=== PATIENT | female | born 1935 | race American Indian/Alaskan Native ===

== ENCOUNTER 2018-09-30 11:40 | Inpatient (IN) | payer MEDICARE ==
--- NOTE | 2018-09-30 12:44 | Emergency Department Report ---
HPI - General Chief Complaint: GI Bleed Time Seen by Provider: 09/30/18 12:30 - HPI HPI: Room 10 The patient is an 83-year-old female presenting with a chief complaint of rectal bleeding. The patient is a resident at [facility] in [place] and per EMS the patient was reported to have rectal bleeding. EMS is unaware of the timeframe surrounding the chief complaint. The patient denies complaints Location: Gastrointestinal system Duration: Unknown Quality: Bleeding Severity: Unknown Modifying factors: [see above] Context: [see above] Mode of transportation: [not driving] ED Past Medical Hx - Past Medical History Previous Medical History?: Yes Hx Hypertension: Yes Hx CVA: Yes Hx of Cancer: Yes (colon CA) Additional medical history: Hyperlipidemia, anemia - Surgical History Past Surgical History?: No - Family History Family history: no significant - Social History Smoking Status: Never Smoker Substance Use Type: None - Medications Home Medications: Home Medications Medication Instructions Recorded Confirmed Last Taken Type Acetaminophen [Tylenol] 650 mg PO Q6HR PRN 09/30/18 09/30/18 Unknown History Ascorbic Acid [Vitamin C] 500 mg PO QDAY 09/30/18 09/30/18 Unknown History Aspirin [Aspirin BABY CHEW TAB] 81 mg PO QDAY 09/30/18 09/30/18 Unknown History Atorvastatin Calcium 80 mg PO DAILY 09/30/18 09/30/18 Unknown History Bisacodyl 10 mg RC Q24H 09/30/18 09/30/18 Unknown History Calcium Carbonate/Vitamin D3 1 each PO DAILY 09/30/18 09/30/18 Unknown History [Calcium 500-Vit D3 200 Tablet] Carvedilol [Coreg] 3.125 mg PO BID 09/30/18 09/30/18 Unknown History Docusate Sodium [Colace] 100 mg PO BID PRN 09/30/18 09/30/18 Unknown History Ergocalciferol [Vitamin D2] 1 cap PO QWEEK 09/30/18 09/30/18 Unknown History Ferrous Sulfate [Iron] 325 mg PO DAILY 09/30/18 09/30/18 Unknown History Megestrol Acetate 400 mg PO BID 09/30/18 09/30/18 Unknown History Mirtazapine [Remeron] 15 mg PO QHS 09/30/18 09/30/18 Unknown History Multivitamin Tab W-MINERAL 1 each PO QD 09/30/18 09/30/18 Unknown History [Multiple Vitamin/Mineral (Theragran M)] Sennosides [Senna] 17.2 mg PO DAILY 09/30/18 09/30/18 Unknown History amLODIPine [Norvasc] 10 mg PO DAILY 09/30/18 09/30/18 Unknown History hydroCHLOROthiazide [HCTZ] 25 mg PO QDAY 09/30/18 09/30/18 Unknown History ED Review of Systems ROS: Stated complaint: RECTUAL BLEEDING Other details as noted in HPI Constitutional: no symptoms reported Eyes: denies: eye pain ENT: denies: throat pain Respiratory: no symptoms reported Cardiovascular: denies: chest pain Endocrine: no symptoms reported Gastrointestinal: hematochezia. denies: abdominal pain, nausea Genitourinary: denies: dysuria Musculoskeletal: denies: back pain Neurological: denies: headache Physical Exam - Physical Exam Vital Signs: Vital Signs 09/30/18 11:49 Temperature 97.6 F Pulse Rate 109 H Respiratory 16 Rate Blood Pressure 112/60 O2 Sat by Pulse 97 Oximetry Physical Exam: GENERAL: The patient is well-developed well-nourished female lying on stretcher appearing pale but not in any acute distress. [] HEENT: Normocephalic. Atraumatic. Extraocular motions are intact. Patient has moist mucous membranes. NECK: Supple. Trachea midline CHEST/LUNGS: Clear to auscultation. There is no respiratory distress noted. HEART/CARDIOVASCULAR: Regular. There is no tachycardia. There is no gallop rub or murmur. ABDOMEN: Abdomen is soft, nontender. Patient has normal bowel sounds. There is no abdominal distention. SKIN: There is no rash. There is no edema. There is no diaphoresis. NEURO: The patient is awake awake and alert. The patient is cooperative. The patient has normal speech MUSCULOSKELETAL: There is no evidence of acute injury. RECTAL: Guaiac positive ED Course Vital Signs 09/30/18 11:49 Temperature 97.6 F Pulse Rate 109 H Respiratory 16 Rate Blood Pressure 112/60 O2 Sat by Pulse 97 Oximetry - Consultations Consultation #1: 09/30/18 13:48 GI paged 09/30/18 13:[address] French- Will consult ED Medical Decision Making - Lab Data Result diagrams: 09/30/18 12:43 09/30/18 12:43 Laboratory Tests 09/30/18 09/30/18 09/30/18 12:43 12:43 12:43 WBC 20.7 H RBC 3.05 L Hgb 7.4 L Hct 23.1 L MCV 76 L MCH 24 L MCHC 32 RDW 15.3 H Plt Count 648 H Lymph % (Auto) Derrick Hand Mayes % (Auto) Derrick Hand Eos % (Auto) Derrick Hand Baso % (Auto) Derrick Hand Lymph # Derrick Hand Mayes # Derrick Hand Eos # Derrick Hand Baso # Derrick Hand Add Manual Diff Complete Total Counted 100 Seg Neutrophils % Derrick Hand Seg Neuts % (Manual) 91.0 H Band Neutrophils % 0 Lymphocytes % (Manual) 6.0 L Reactive Lymphs % (Man) 0 Monocytes % (Manual) 3.0 Eosinophils % (Manual) 0 Basophils % (Manual) 0 Metamyelocytes % 0 Myelocytes % 0 Promyelocytes % 0 Blast Cells % 0 Nucleated RBC % Not Reportable Seg Neutrophils # Derrick Hand Seg Neutrophils # Man 18.8 H Band Neutrophils # 0.0 Lymphocytes # (Manual) 1.2 Abs React Lymphs (Man) 0.0 Monocytes # (Manual) 0.6 Eosinophils # (Manual) 0.0 Basophils # (Manual) 0.0 Metamyelocytes # 0.0 Myelocytes # 0.0 Promyelocytes # 0.0 Blast Cells # 0.0 WBC Morphology Not Reportable Hypersegmented Neuts Not Reportable Hyposegmented Neuts Not Reportable Hypogranular Neuts Not Reportable Smudge Cells Not Reportable Toxic Granulation Not Reportable Toxic Vacuolation Not Reportable Dohle Bodies Not Reportable Pelger-Huet Anomaly Not Reportable Hao Rods Not Reportable Platelet Estimate Appears increased Clumped Platelets Not Reportable Plt Clumps, EDTA Not Reportable Large Platelets Few Giant Platelets Not Reportable Platelet Satelliting Not Reportable Plt Morphology Comment Not Reportable RBC Morphology Not Reportable Dimorphic RBCs Not Reportable Polychromasia Not Reportable Hypochromasia 1+ Poikilocytosis Not Reportable Anisocytosis 1+ Microcytosis 1+ Macrocytosis Not Reportable Spherocytes Not Reportable Pappenheimer Bodies Not Reportable Sickle Cells Not Reportable Target Cells Rare Tear Drop Cells Not Reportable Ovalocytes 1+ Helmet Cells Rare [place]-Acequia Bodies Not Reportable [place] Rings Not Reportable [place] Cells Not Reportable Bite Cells Not Reportable Crenated Cell Not Reportable Elliptocytes Few Acanthocytes (Spur) Not Reportable Rouleaux Not Reportable Hemoglobin C Crystals Not Reportable Schistocytes Not Reportable Malaria parasites Not Reportable Denis Bodies Not Reportable Hem Pathologist Commnt No PT 16.3 H INR 1.27 H APTT 20.0 L Sodium 142 Potassium 4.7 Chloride 96.0 L Carbon Dioxide 23 Anion Gap 28 BUN 98 H Creatinine 2.3 H Estimated GFR 25 BUN/Creatinine Ratio 43 Glucose 150 H Calcium 10.6 H Total Bilirubin 0.40 AST 14 ALT 7 Alkaline Phosphatase 105 Total Protein 8.6 H Albumin 3.3 L Albumin/Globulin Ratio 0.6 Lipase 29 Blood Type Antibody Screen Crossmatch 09/30/18 12:43 WBC RBC Hgb Hct MCV MCH MCHC RDW Plt Count Lymph % (Auto) Mayes % (Auto) Eos % (Auto) Baso % (Auto) Lymph # Mayes # Eos # Baso # Add Manual Diff Total Counted Seg Neutrophils % Seg Neuts % (Manual) Band Neutrophils % Lymphocytes % (Manual) Reactive Lymphs % (Man) Monocytes % (Manual) Eosinophils % (Manual) Basophils % (Manual) Metamyelocytes % Myelocytes % Promyelocytes % Blast Cells % Nucleated RBC % Seg Neutrophils # Seg Neutrophils # Man Band Neutrophils # Lymphocytes # (Manual) Abs React Lymphs (Man) Monocytes # (Manual) Eosinophils # (Manual) Basophils # (Manual) Metamyelocytes # Myelocytes # Promyelocytes # Blast Cells # WBC Morphology Hypersegmented Neuts Hyposegmented Neuts Hypogranular Neuts Smudge Cells Toxic Granulation Toxic Vacuolation Dohle Bodies Pelger-Huet Anomaly Hao Rods Platelet Estimate Clumped Platelets Plt Clumps, EDTA Large Platelets Giant Platelets Platelet Satelliting Plt Morphology Comment RBC Morphology Dimorphic RBCs Polychromasia Hypochromasia Poikilocytosis Anisocytosis Microcytosis Macrocytosis Spherocytes Pappenheimer Bodies Sickle Cells Target Cells Tear Drop Cells Ovalocytes Helmet Cells Titus-Acequia Bodies [place] Rings Rogerio Cells Bite Cells Crenated Cell Elliptocytes Acanthocytes (Spur) Rouleaux Hemoglobin C Crystals Schistocytes Malaria parasites Denis Bodies Hem Pathologist Commnt PT INR APTT Sodium Potassium Chloride Carbon Dioxide Anion Gap BUN Creatinine Estimated GFR BUN/Creatinine Ratio Glucose Calcium Total Bilirubin AST ALT Alkaline Phosphatase Total Protein Albumin Albumin/Globulin Ratio Lipase Blood Type AB POSITIVE Antibody Screen Negative Crossmatch See Detail - Differential Diagnosis GI bleed, symptomatic anemia, diverticulosis Critical care attestation.: If time is entered above; I have spent that time in minutes in the direct care of this critically ill patient, excluding procedure time. ED Disposition Clinical Impression: GI bleed, Symptomatic anemia, Leukocytosis, Renal insufficiency Disposition: OP ADMIT IP TO THIS HOSP Is pt being admited?: Yes Does the pt Need Aspirin: No Condition: Fair Forms: Accompanied Note Time of Disposition: 14:07 (hospitalist paged (Dr Adhikari))
[2018-09-30 13:16] LABS: Hematocrit 23.1 % (30.3-42.9); Hemoglobin 7.4 gm/dl (10.1-14.3); Mean Corpuscular HGB Conc 32 % (30-34); Mean Corpuscular Volume 76 fl (79-97); Platelet Count 648 K/mm3 (140-440); Red Blood Count 3.05 M/mm3 (3.65-5.03); Red Cell Distribution Width 15.3 % (13.2-15.2)
[2018-09-30 13:24] LABS: INR 1.27 (0.87-1.13)
[2018-09-30] MEDS ORDERED: NACL 0.9% 500 ML 500 ML IV ONE (13:29)
[2018-09-30 13:56] LABS: Basophils % (Manual) 0 % (0.0-1.8); Eosinophils % (Manual) 0 % (0.0-4.3); Total Cells Counted 100
[2018-09-30 13:57] LABS: Anisocytosis 1+; Helmet Cells Rare; Hypochromasia 1+; Large Platelets Few; Ovalocytes 1+; Platelet Estimate Appears Increased; Target Cells Rare
--- NOTE | 2018-09-30 13:58 | Gastroenterology Consultation ---
History of Present Illness - Reason for Consult Consult date: 09/30/18 rectal bleeding - History of Present Illness This is a 83 yo female from [facility] with pmh of stroke, dementia, and h/o colon cancer (unknown treatment or details of the history) presenting to the ED for rectal bleeding per custodial personnel. Patient unable to give much history but denies any abdominal pain, nausea/vomiting or diarrhea. In the ED, she was noted to be mildly tachycardic with normal BP. Hgb at 7 with no known baseline Hgb. Spoke with her niece, who is the closest relative. She thinks patient has had colonoscopy in the past but not sure of the details. Patient received most of her care at [place]. H/o kidney surgery. Per custodial records, patient only on ASA 81 mg. Past History Past Medical History: stroke Past Surgical History: Other (kidney surgery) Medications and Allergies Allergies Allergy/AdvReac Type Severity Reaction Status Date / Time No Known Allergies Allergy Verified 09/30/18 11:47 Home Medications Medication Instructions Recorded Confirmed Last Taken Type Acetaminophen [Tylenol] 650 mg PO Q6HR PRN 09/30/18 09/30/18 Unknown History Ascorbic Acid [Vitamin C] 500 mg PO QDAY 09/30/18 09/30/18 Unknown History Aspirin [Aspirin BABY CHEW TAB] 81 mg PO QDAY 09/30/18 09/30/18 Unknown History Atorvastatin Calcium 80 mg PO DAILY 09/30/18 09/30/18 Unknown History Bisacodyl 10 mg RC Q24H 09/30/18 09/30/18 Unknown History Calcium Carbonate/Vitamin D3 1 each PO DAILY 09/30/18 09/30/18 Unknown History [Calcium 500-Vit D3 200 Tablet] Carvedilol [Coreg] 3.125 mg PO BID 09/30/18 09/30/18 Unknown History Docusate Sodium [Colace] 100 mg PO BID PRN 09/30/18 09/30/18 Unknown History Ergocalciferol [Vitamin D2] 1 cap PO QWEEK 09/30/18 09/30/18 Unknown History Ferrous Sulfate [Iron] 325 mg PO DAILY 09/30/18 09/30/18 Unknown History Megestrol Acetate 400 mg PO BID 09/30/18 09/30/18 Unknown History Mirtazapine [Remeron] 15 mg PO QHS 09/30/18 09/30/18 Unknown History Multivitamin Tab W-MINERAL 1 each PO QD 09/30/18 09/30/18 Unknown History [Multiple Vitamin/Mineral (Theragran M)] Sennosides [Senna] 17.2 mg PO DAILY 09/30/18 09/30/18 Unknown History amLODIPine [Norvasc] 10 mg PO DAILY 09/30/18 09/30/18 Unknown History hydroCHLOROthiazide [HCTZ] 25 mg PO QDAY 09/30/18 09/30/18 Unknown History Review of Systems - Review of Systems ROS unobtainable: due to mental status Exam - Constitutional Vital Signs: Temp Pulse Resp BP Pulse Ox 97.6 F 134 H 20 122/66 88 09/30/18 11:49 09/30/18 12:49 09/30/18 12:49 09/30/18 12:49 09/30/18 12:49 General appearance: no acute distress - EENT Eyes: EOM intact ENT: hearing intact - Neck Neck: supple - Respiratory Respiratory effort: normal Respiratory: bilateral: CTA - Cardiovascular Rhythm: regular Heart Sounds: Present: S1 & S2 Extremities: No edema - Gastrointestinal General gastrointestinal: Present: soft, non-tender, non-distended, normal bowel sounds - Neurologic Neurological: oriented to person, oriented to place - Psychiatric Psychiatric: appropriate mood/affect - Labs CBC & Chem 7: 09/30/18 12:43 09/30/18 12:43 Lab Results: Laboratory Results - last 24 hr 09/30/18 09/30/18 09/30/18 12:43 12:43 12:43 WBC 20.7 H RBC 3.05 L Hgb 7.4 L Hct 23.1 L MCV 76 L MCH 24 L MCHC 32 RDW 15.3 H Plt Count 648 H Lymph % (Auto) Freight Manager [place] % (Auto) Freight Manager Eos % (Auto) Freight Manager Baso % (Auto) Freight Manager Lymph # Freight Manager [place] # Freight Manager Eos # Freight Manager Baso # Freight Manager Add Manual Diff Complete Total Counted 100 Seg Neutrophils % Freight Manager Seg Neuts % (Manual) 91.0 H Band Neutrophils % 0 Lymphocytes % (Manual) 6.0 L Reactive Lymphs % (Man) 0 Monocytes % (Manual) 3.0 Eosinophils % (Manual) 0 Basophils % (Manual) 0 Metamyelocytes % 0 Myelocytes % 0 Promyelocytes % 0 Blast Cells % 0 Nucleated RBC % Not Reportable Seg Neutrophils # Freight Manager Seg Neutrophils # Man 18.8 H Band Neutrophils # 0.0 Lymphocytes # (Manual) 1.2 Abs React Lymphs (Man) 0.0 Monocytes # (Manual) 0.6 Eosinophils # (Manual) 0.0 Basophils # (Manual) 0.0 Metamyelocytes # 0.0 Myelocytes # 0.0 Promyelocytes # 0.0 Blast Cells # 0.0 WBC Morphology Not Reportable Hypersegmented Neuts Not Reportable Hyposegmented Neuts Not Reportable Hypogranular Neuts Not Reportable Smudge Cells Not Reportable Toxic Granulation Not Reportable Toxic Vacuolation Not Reportable Dohle Bodies Not Reportable Pelger-Huet Anomaly Not Reportable Hao Rods Not Reportable Platelet Estimate Appears increased Clumped Platelets Not Reportable Plt Clumps, EDTA Not Reportable Large Platelets Few Giant Platelets Not Reportable Platelet Satelliting Not Reportable Plt Morphology Comment Not Reportable RBC Morphology Not Reportable Dimorphic RBCs Not Reportable Polychromasia Not Reportable Hypochromasia 1+ Poikilocytosis Not Reportable Anisocytosis 1+ Microcytosis 1+ Macrocytosis Not Reportable Spherocytes Not Reportable Pappenheimer Bodies Not Reportable Sickle Cells Not Reportable Target Cells Rare Tear Drop Cells Not Reportable Ovalocytes 1+ Helmet Cells Rare Titus-Mcpherson Bodies Not Reportable [place] Rings Not Reportable [place] Cells Not Reportable Bite Cells Not Reportable Crenated Cell Not Reportable Elliptocytes Few Acanthocytes (Spur) Not Reportable Rouleaux Not Reportable Hemoglobin C Crystals Not Reportable Schistocytes Not Reportable Malaria parasites Not Reportable Denis Bodies Not Reportable Hem Pathologist Commnt No PT 16.3 H INR 1.27 H APTT 20.0 L Blood Type AB POSITIVE Antibody Screen Negative Crossmatch See Detail Assessment and Plan # Rectal bleeding - Hgb at 7.4 with no known baseline H/H. leukocytosis without clear cause. - benign abdominal exam. - CT abdomen/pelvis pending. - patient receiving 1 unit PRBC currently. Rec: - monitor H/H overnight. - follow up CT scan results. - will plan for colonoscopy tomorrow pending CT scan results. - clear liquids today and NPO MN. - Golytely prep.
[2018-09-30 14:01] LABS: Albumin 3.3 g/dL (3.9-5); Calcium 10.6 mg/dL (8.4-10.2)
[2018-09-30] MEDS ORDERED: NACL 0.9% 1000 ML 1,000 ML IV ONE (14:06)
--- NOTE | 2018-09-30 14:40 | History and Physical Report ---
History of Present Illness Chief complaint: confused History of present illness: 83 YO Female [facility] Resident at [facility] with Dementia, HTN, CVA, HLD, Colon Cancer, Anemia presents to ED for evaluation. Pt is confused and unable to provide history. Pt history taken from ED staff, EMS, and SNF staff. As per staff, the patient was found to have rectal bleeding today. EMS notified, and upon arrival the patient was found to be confused. Pt transported to [facility] for further care and evaluation. Pt seen and evaluated in ED and found to have GI Bleed, Encephalopathy, Acute Renal Failure, and Sepsis. Pt admitted to [facility] unit and initiated on sepsis protocol. GI team consulted in ED. No further history obtainable. Past History Past Medical History: anemia, cancer, hypertension, hyperlipidemia, stroke Past Surgical History: No surgical history, Other (reviewed) Social history: single. denies: smoking, alcohol abuse, IV drug use Family history: no significant family history (reviewed) Medications and Allergies Allergies Allergy/AdvReac Type Severity Reaction Status Date / Time No Known Allergies Allergy Verified 09/30/18 11:47 Home Medications Medication Instructions Recorded Confirmed Last Taken Type Acetaminophen [Tylenol] 650 mg PO Q6HR PRN 09/30/18 09/30/18 Unknown History Ascorbic Acid [Vitamin C] 500 mg PO QDAY 09/30/18 09/30/18 Unknown History Aspirin [Aspirin BABY CHEW TAB] 81 mg PO QDAY 09/30/18 09/30/18 Unknown History Atorvastatin Calcium 80 mg PO DAILY 09/30/18 09/30/18 Unknown History Bisacodyl 10 mg RC Q24H 09/30/18 09/30/18 Unknown History Calcium Carbonate/Vitamin D3 1 each PO DAILY 09/30/18 09/30/18 Unknown History [Calcium 500-Vit D3 200 Tablet] Carvedilol [Coreg] 3.125 mg PO BID 09/30/18 09/30/18 Unknown History Docusate Sodium [Colace] 100 mg PO BID PRN 09/30/18 09/30/18 Unknown History Ergocalciferol [Vitamin D2] 1 cap PO QWEEK 09/30/18 09/30/18 Unknown History Ferrous Sulfate [Iron] 325 mg PO DAILY 09/30/18 09/30/18 Unknown History Megestrol Acetate 400 mg PO BID 09/30/18 09/30/18 Unknown History Mirtazapine [Remeron] 15 mg PO QHS 09/30/18 09/30/18 Unknown History Multivitamin Tab W-MINERAL 1 each PO QD 09/30/18 09/30/18 Unknown History [Multiple Vitamin/Mineral (Theragran M)] Sennosides [Senna] 17.2 mg PO DAILY 09/30/18 09/30/18 Unknown History amLODIPine [Norvasc] 10 mg PO DAILY 09/30/18 09/30/18 Unknown History hydroCHLOROthiazide [HCTZ] 25 mg PO QDAY 09/30/18 09/30/18 Unknown History Active Meds: Active Medications Sodium Chloride (Nacl 0.9% 1000 Ml) 1,000 mls @ 999 mls/hr IV ONCE ONE Stop: 09/30/18 15:06 Review of Systems ROS unobtainable: due to mental status Exam - Constitutional Vitals: Temp Pulse Resp BP Pulse Ox 97.6 F 134 H 20 122/66 88 09/30/18 11:49 09/30/18 12:49 09/30/18 12:49 09/30/18 12:49 09/30/18 12:49 General appearance: Present: mild distress, cachectic - EENT Eyes: Present: PERRL (conjunctival pallor) ENT: hearing intact, clear oral mucosa - Neck Neck: Present: supple, normal ROM - Respiratory Respiratory effort: normal Respiratory: bilateral: CTA - Cardiovascular Heart Sounds: Present: S1 & S2. Absent: rub, click - Extremities Extremities: pulses symmetrical, No edema Peripheral Pulses: within normal limits - Abdominal General gastrointestinal: Present: soft, non-tender, non-distended, normal bowel sounds Female genitourinary: Present: normal - Integumentary Integumentary: Present: clear, warm, dry - Musculoskeletal Musculoskeletal: generalized weakness - Psychiatric Psychiatric: no appropriate mood/affect, no intact judgment & insight, no memory intact - Neurologic Neurologic: no focal deficits, no gait normal Results - Labs CBC & Chem 7: 09/30/18 12:43 09/30/18 12:43 Labs: Abnormal lab results 09/30/18 09/30/18 09/30/18 Range/Units 12:43 12:43 12:43 WBC 20.7 H (4.5-11.0) K/mm3 RBC 3.05 L (3.65-5.03) M/mm3 Hgb 7.4 L (10.1-14.3) gm/dl Hct 23.1 L (30.3-42.9) % MCV 76 L (79-97) fl MCH 24 L (28-32) pg RDW 15.3 H (13.2-15.2) % Plt Count 648 H (140-440) K/mm3 Seg Neuts % (Manual) 91.0 H (40.0-70.0) % Lymphocytes % (Manual) 6.0 L (13.4-35.0) % Seg Neutrophils # Man 18.8 H (1.8-7.7) K/mm3 PT 16.3 H (12.2-14.9) Sec. INR 1.27 H (0.87-1.13) APTT 20.0 L (24.2-36.6) Sec. Chloride 96.0 L (98-107) mmol/L BUN 98 H (7-17) mg/dL Creatinine 2.3 H (0.7-1.2) mg/dL Glucose 150 H (65-100) mg/dL Calcium 10.6 H (8.4-10.2) mg/dL Total Protein 8.6 H (6.3-8.2) g/dL Albumin 3.3 L (3.9-5) g/dL Crossmatch 09/30/18 Range/Units 12:43 WBC (4.5-11.0) K/mm3 RBC (3.65-5.03) M/mm3 Hgb (10.1-14.3) gm/dl Hct (30.3-42.9) % MCV (79-97) fl MCH (28-32) pg RDW (13.2-15.2) % Plt Count (140-440) K/mm3 Seg Neuts % (Manual) (40.0-70.0) % Lymphocytes % (Manual) (13.4-35.0) % Seg Neutrophils # Man (1.8-7.7) K/mm3 PT (12.2-14.9) Sec. INR (0.87-1.13) APTT (24.2-36.6) Sec. Chloride (98-107) mmol/L BUN (7-17) mg/dL Creatinine (0.7-1.2) mg/dL Glucose (65-100) mg/dL Calcium (8.4-10.2) mg/dL Total Protein (6.3-8.2) g/dL Albumin (3.9-5) g/dL Crossmatch See Detail Assessment and Plan - Patient Problems (1) Sepsis Current Visit: Yes Status: Acute Qualifiers: Sepsis type: sepsis due to unspecified organism Qualified Code(s): A41.9 - Sepsis, unspecified organism Plan to address problem: IV antibiotic therapy, CBC, CMP, urinalysis, blood cultures, IVF resuscitation therapy, serial lactic acid level (2) ARF (acute renal failure) Current Visit: Yes Status: Acute Qualifiers: Acute renal failure type: with acute tubular necrosis Qualified Code(s): N17.0 - Acute kidney failure with tubular necrosis Plan to address problem: IVF resuscitation therapy, monitor uop q shift, monitor serum creatnine (3) Anemia Current Visit: Yes Status: Acute Plan to address problem: PRBC transfusion, serial cbc (4) GI bleed Current Visit: Yes Status: Acute Qualifiers: GI bleed type/associated pathology: anorectal hemorrhage Qualified Code(s): K62.5 - Hemorrhage of anus and rectum Plan to address problem: stool for occult blood, CT Abdomen pelvis, protonix, bowel rest, GI consulted in ED. (5) DVT prophylaxis Current Visit: Yes Status: Acute Plan to address problem: SCD to BLE while in bed
[2018-09-30] MEDS ORDERED: PROVENTIL IH PRN (14:43)
[2018-09-30] MEDS ORDERED: NACL 0.9% 1000 ML IV ONE (14:43)
[2018-09-30] MEDS ORDERED: SODIUM CHLORIDE FLUSH SYRINGE 10 ML IV PRN (14:43)
[2018-09-30] MEDS: FLAGYL 500 MG/100 ML 500 MG/100 ML BAG IV SCH (23:07)
[2018-09-30] MEDS: MAXIPIME/NS 2 GM/100 ML 2 GM/100 ML BAG IV SCH (23:08)
[2018-09-30] MEDS: SODIUM CHLORIDE FLUSH SYRINGE 10 ML IV SCH (23:09)
[2018-09-30] MEDS: PROTONIX IV SCH (23:09)
[2018-10-01] MEDS ORDERED: GOLYTELY PO ONE (02:47)
[2018-10-01 04:25] LABS: Basophils % (Auto) 0.1 % (0.0-1.8); Eosinophils % (Auto) 0.2 % (0.0-4.3); Hematocrit 25.9 % (30.3-42.9); Hemoglobin 8.3 gm/dl (10.1-14.3); Lymphocytes # (Auto) 1.3 K/mm3 (1.2-5.4); Lymphocytes % (Auto) 6.9 % (13.4-35.0); Mean Corpuscular HGB Conc 32 % (30-34); Mean Corpuscular Volume 78 fl (79-97); Monocytes # (Auto) 1.5 K/mm3 (0.0-0.8); Monocytes % (Auto) 7.7 % (0.0-7.3); Platelet Count 432 K/mm3 (140-440); Red Blood Count 3.31 M/mm3 (3.65-5.03); Red Cell Distribution Width 15.6 % (13.2-15.2)
[2018-10-01 04:49] LABS: Calcium 9.2 mg/dL (8.4-10.2)
[2018-10-01] MEDS: FLAGYL 500 MG/100 ML 500 MG/100 ML BAG IV SCH ×3 (05:55→21:48)
[2018-10-01] MEDS: MAXIPIME/NS 2 GM/100 ML 2 GM/100 ML BAG IV SCH ×3 (05:56→21:48)
--- NOTE | 2018-10-01 08:48 | Progress Note ---
Assessment and Plan Assessment and plan: 83-year-old [place] [facility] was admitted through emergency room with rectal bleeding, evaluated by GI, recommend CT abdomen and pelvis with contrast as well as,Bowel preparation for possible colonoscopy tomorrow No new episodes of rectal bleeding hemodynamically stable, --Rectal bleeding; no episodes since admission Hemodynamically stable, GI evaluation noted and appreciated CT abdomen and pelvis with contrast, bowel preparation Possible colonoscopy tomorrow --Anemia secondary to rectal bleeding, received 1 unit PRBC transfusion Mild improvement in hemoglobin, closely monitor; --Acute kidney injury; secondary to vasomotor nephropathy Creatinine trending down, avoid nephrotoxins, gentle hydration --Hypertension: Moderate control, continue current management --Hypernatremia; DC normal saline, start D5 half normal --Dementia; supportive care -- SIRS : by Criteria, empiric antibiotics and follow cultures, supportive care, --DVTprophylaxis: SCD --Full CODE STATUS Plan of care is reviewed with the patient's nurse GI evaluation and recommendations noted and appreciated History Interval history: Patient seen and examined medical records reviewed Patient is admitted with rectal bleeding, GI evaluated the patient Advised CT abdomen and pelvis with contrast, and advise Golytely for possible colonoscopy tomorrow The patient is cachectic, noncommunicative Vital signs noted Hospitalist Physical - Constitutional Vitals: Temp Pulse Resp BP Pulse Ox 97.4 F L 95 H 18 127/62 97 09/30/18 14:35 09/30/18 22:00 09/30/18 14:35 09/30/18 14:35 09/30/18 14:35 General appearance: Present: mild distress, cachectic - EENT Eyes: Present: PERRL, EOM intact - Neck Neck: Present: supple, normal ROM - Respiratory Respiratory effort: normal Respiratory: bilateral: diminished, negative: rales, rhonchi, wheezing - Cardiovascular Rhythm: regular Heart Sounds: Present: S1 & S2 - Extremities Extremities: no ischemia, No edema - Abdominal General gastrointestinal: soft, non-tender, non-distended, normal bowel sounds - Integumentary Integumentary: Present: clear, warm - Psychiatric Psychiatric: other (dementia ) - Neurologic Neurologic: other (noncommunicative) Results - Labs CBC & Chem 7: 10/01/18 03:35 10/01/18 03:35 Labs: Laboratory Last Values WBC 18.8 K/mm3 (4.5-11.0) H 10/01/18 03:35 RBC 3.31 M/mm3 (3.65-5.03) L 10/01/18 03:35 Hgb 8.3 gm/dl (10.1-14.3) L 10/01/18 03:35 Hct 25.9 % (30.3-42.9) L 10/01/18 03:35 MCV 78 fl (79-97) L 10/01/18 03:35 MCH 25 pg (28-32) L 10/01/18 03:35 MCHC 32 % (30-34) 10/01/18 03:35 RDW 15.6 % (13.2-15.2) H 10/01/18 03:35 Plt Count 432 K/mm3 (140-440) 10/01/18 03:35 Lymph % (Auto) 6.9 % (13.4-35.0) L 10/01/18 03:35 Conway % (Auto) 7.7 % (0.0-7.3) H 10/01/18 03:35 Eos % (Auto) 0.2 % (0.0-4.3) 10/01/18 03:35 Baso % (Auto) 0.1 % (0.0-1.8) 10/01/18 03:35 Lymph # 1.3 K/mm3 (1.2-5.4) 10/01/18 03:35 Conway # 1.5 K/mm3 (0.0-0.8) H 10/01/18 03:35 Eos # 0.0 K/mm3 (0.0-0.4) 10/01/18 03:35 Baso # 0.0 K/mm3 (0.0-0.1) 10/01/18 03:35 Add Manual Diff Complete 09/30/18 12:43 Total Counted 100 09/30/18 12:43 Seg Neutrophils % 85.1 % (40.0-70.0) H 10/01/18 03:35 Seg Neuts % (Manual) 91.0 % (40.0-70.0) H 09/30/18 12:43 Band Neutrophils % 0 % 09/30/18 12:43 Lymphocytes % (Manual) 6.0 % (13.4-35.0) L 09/30/18 12:43 Reactive Lymphs % (Man) 0 % 09/30/18 12:43 Monocytes % (Manual) 3.0 % (0.0-7.3) 09/30/18 12:43 Eosinophils % (Manual) 0 % (0.0-4.3) 09/30/18 12:43 Basophils % (Manual) 0 % (0.0-1.8) 09/30/18 12:43 Metamyelocytes % 0 % 09/30/18 12:43 Myelocytes % 0 % 09/30/18 12:43 Promyelocytes % 0 % 09/30/18 12:43 Blast Cells % 0 % 09/30/18 12:43 Nucleated RBC % Not Reportable 09/30/18 12:43 Seg Neutrophils # 16.0 K/mm3 (1.8-7.7) H 10/01/18 03:35 Seg Neutrophils # Man 18.8 K/mm3 (1.8-7.7) H 09/30/18 12:43 Band Neutrophils # 0.0 K/mm3 09/30/18 12:43 Lymphocytes # (Manual) 1.2 K/mm3 (1.2-5.4) 09/30/18 12:43 Abs React Lymphs (Man) 0.0 K/mm3 09/30/18 12:43 Monocytes # (Manual) 0.6 K/mm3 (0.0-0.8) 09/30/18 12:43 Eosinophils # (Manual) 0.0 K/mm3 (0.0-0.4) 09/30/18 12:43 Basophils # (Manual) 0.0 K/mm3 (0.0-0.1) 09/30/18 12:43 Metamyelocytes # 0.0 K/mm3 09/30/18 12:43 Myelocytes # 0.0 K/mm3 09/30/18 12:43 Promyelocytes # 0.0 K/mm3 09/30/18 12:43 Blast Cells # 0.0 K/mm3 09/30/18 12:43 WBC Morphology Not Reportable 09/30/18 12:43 Hypersegmented Neuts Not Reportable 09/30/18 12:43 Hyposegmented Neuts Not Reportable 09/30/18 12:43 Hypogranular Neuts Not Reportable 09/30/18 12:43 Smudge Cells Not Reportable 09/30/18 12:43 Toxic Granulation Not Reportable 09/30/18 12:43 Toxic Vacuolation Not Reportable 09/30/18 12:43 Dohle Bodies Not Reportable 09/30/18 12:43 Pelger-Huet Anomaly Not Reportable 09/30/18 12:43 Hao Rods Not Reportable 09/30/18 12:43 Platelet Estimate Appears increased 09/30/18 12:43 Clumped Platelets Not Reportable 09/30/18 12:43 Plt Clumps, EDTA Not Reportable 09/30/18 12:43 Large Platelets Few 09/30/18 12:43 Giant Platelets Not Reportable 09/30/18 12:43 Platelet Satelliting Not Reportable 09/30/18 12:43 Plt Morphology Comment Not Reportable 09/30/18 12:43 RBC Morphology Not Reportable 09/30/18 12:43 Dimorphic RBCs Not Reportable 09/30/18 12:43 Polychromasia Not Reportable 09/30/18 12:43 Hypochromasia 1+ 09/30/18 12:43 Poikilocytosis Not Reportable 09/30/18 12:43 Anisocytosis 1+ 09/30/18 12:43 Microcytosis 1+ 09/30/18 12:43 Macrocytosis Not Reportable 09/30/18 12:43 Spherocytes Not Reportable 09/30/18 12:43 Pappenheimer Bodies Not Reportable 09/30/18 12:43 Sickle Cells Not Reportable 09/30/18 12:43 Target Cells Rare 09/30/18 12:43 Tear Drop Cells Not Reportable 09/30/18 12:43 Ovalocytes 1+ 09/30/18 12:43 Helmet Cells Rare 09/30/18 12:43 [place] Bodies Not Reportable 09/30/18 12:43 [place] Rings Not Reportable 09/30/18 12:43 [place] Cells Not Reportable 09/30/18 12:43 Bite Cells Not Reportable 09/30/18 12:43 Crenated Cell Not Reportable 09/30/18 12:43 Elliptocytes Few 09/30/18 12:43 Acanthocytes (Spur) Not Reportable 09/30/18 12:43 Rouleaux Not Reportable 09/30/18 12:43 Hemoglobin C Crystals Not Reportable 09/30/18 12:43 Schistocytes Not Reportable 09/30/18 12:43 Malaria parasites Not Reportable 09/30/18 12:43 Denis Bodies Not Reportable 09/30/18 12:43 Hem Pathologist Commnt No 09/30/18 12:43 PT 16.3 Sec. (12.2-14.9) H 09/30/18 12:43 INR 1.27 (0.87-1.13) H 09/30/18 12:43 APTT 20.0 Sec. (24.2-36.6) L 09/30/18 12:43 Sodium 148 mmol/L (137-145) H 10/01/18 03:35 Potassium 4.3 mmol/L (3.6-5.0) 10/01/18 03:35 Chloride 107.9 mmol/L (98-107) H 10/01/18 03:35 Carbon Dioxide 21 mmol/L (22-30) L 10/01/18 03:35 Anion Gap 23 mmol/L 10/01/18 03:35 BUN 92 mg/dL (7-17) H 10/01/18 03:35 Creatinine 2.0 mg/dL (0.7-1.2) H 10/01/18 03:35 Estimated GFR 29 ml/min 10/01/18 03:35 BUN/Creatinine Ratio 46 % 10/01/18 03:35 Glucose 115 mg/dL (65-100) H 10/01/18 03:35 Lactic Acid 1.50 mmol/L (0.7-2.0) 09/30/18 14:59 Calcium 9.2 mg/dL (8.4-10.2) 10/01/18 03:35 Total Bilirubin 0.40 mg/dL (0.1-1.2) 09/30/18 12:43 AST 14 units/L (5-40) 09/30/18 12:43 ALT 7 units/L (7-56) 09/30/18 12:43 Alkaline Phosphatase 105 units/L (35-129) 09/30/18 12:43 Total Protein 8.6 g/dL (6.3-8.2) H 09/30/18 12:43 Albumin 3.3 g/dL (3.9-5) L 09/30/18 12:43 Albumin/Globulin Ratio 0.6 % 09/30/18 12:43 Lipase 29 units/L (13-60) 09/30/18 12:43 Blood Type AB POSITIVE 09/30/18 12:43 Antibody Screen Negative 09/30/18 12:43 Crossmatch See Detail 09/30/18 12:43
[2018-10-01] MEDS: PROTONIX IV SCH ×2 (09:12→21:48)
[2018-10-01] MEDS: SODIUM CHLORIDE FLUSH SYRINGE 10 ML IV SCH ×2 (09:43→21:49)
--- NOTE | 2018-10-01 11:50 | XRay Report ---
AP CHEST: AP abdomen: HISTORY: Nasogastric tube placement The nasogastric tube is coiled upon itself in the distal esophagus. Replacement is recommended. AP view of the chest and abdomen are within normal limits. There appears to be residual oral contrast in the colon. IMPRESSION: The nasogastric tube is coiled upon itself in the esophagus.
--- NOTE | 2018-10-01 14:40 | XRay Report ---
AP ABDOMEN: HISTORY: Nasogastric tube placement. The nasogastric tube is essentially unchanged since earlier today at 1119 hrs. The nasogastric tube is coiled upon itself in the mid to distal esophagus. IMPRESSION: The nasogastric tube remains coiled upon itself within the esophagus. No change since earlier today.
--- NOTE | 2018-10-01 14:57 | XRay Report ---
AP ABDOMEN: HISTORY: Nasogastric tube placement. The nasogastric tube has been repositioned since earlier today and now terminates in the fundus of the stomach. The remainder of the examination is unchanged. IMPRESSION: Nasogastric tube terminates in the fundus of the stomach.
--- NOTE | 2018-10-01 15:02 | Gastroenterology Progress Note ---
Assessment and Plan # Rectal bleeding - Hgb at 7.4 with no known baseline H/H. leukocytosis without clear cause. - benign abdominal exam. - CT abdomen/pelvis pending. - no additional episode of rectal bleeding. - H/H stable. - was planned for colonoscopy but not prepped. Rec: - monitor H/H - follow up CT scan results. - will plan for colonoscopy tomorrow. prep medication to be given via NG tube after CT scan. Subjective Date of service: 10/01/18 Interval history: No prep taken by patient. No additional episode of rectal bleeding Objective - Constitutional Vitals: Temp Pulse Resp BP Pulse Ox 97.6 F 100 H 17 132/60 100 10/01/18 08:00 10/01/18 14:50 10/01/18 14:50 10/01/18 14:50 10/01/18 14:50 - EENT ENT: hearing intact, clear oral mucosa, dentition normal - Neck Neck: supple, normal ROM - Respiratory Respiratory effort: normal Respiratory: bilateral: CTA - Cardiovascular Rhythm: regular - Extremities Extremities: pulses intact, No edema, normal color, Full ROM - Gastrointestinal General gastrointestinal: Present: soft, non-tender, non-distended, normal bowel sounds - Integumentary Integumentary: Present: clear, warm, dry - Neurologic Neurological: oriented to place - Labs CBC & Chem 7: 10/01/18 03:35 10/01/18 03:35 Labs: Laboratory Results - last 24 hr 09/30/18 09/30/18 10/01/18 12:43 14:59 03:35 WBC 18.8 H RBC 3.31 L Hgb 8.3 L Hct 25.9 L MCV 78 L MCH 25 L MCHC 32 RDW 15.6 H Plt Count 432 Lymph % (Auto) 6.9 L Ellis % (Auto) 7.7 H Eos % (Auto) 0.2 Baso % (Auto) 0.1 Lymph # 1.3 Ellis # 1.5 H Eos # 0.0 Baso # 0.0 Seg Neutrophils % 85.1 H Seg Neutrophils # 16.0 H Sodium Potassium Chloride Carbon Dioxide Anion Gap BUN Creatinine Estimated GFR BUN/Creatinine Ratio Glucose Lactic Acid 1.50 Calcium Crossmatch See Detail 10/01/18 03:35 WBC RBC Hgb Hct MCV MCH MCHC RDW Plt Count Lymph % (Auto) Ellis % (Auto) Eos % (Auto) Baso % (Auto) Lymph # Ellis # Eos # Baso # Seg Neutrophils % Seg Neutrophils # Sodium 148 H Potassium 4.3 Chloride 107.9 H Carbon Dioxide 21 L Anion Gap 23 BUN 92 H Creatinine 2.0 H Estimated GFR 29 BUN/Creatinine Ratio 46 Glucose 115 H Lactic Acid Calcium 9.2 Crossmatch - Imaging CT scan: pending
[2018-10-01] MEDS ORDERED: D5/0.45NS 1,000 ML IV SCH (18:00)
[2018-10-01] MEDS: D5/0.45NS 1,000 ML IV SCH (18:24)
--- NOTE | 2018-10-01 21:34 | Cat Scan Report ---
FINAL REPORT EXAM: CT ABDOMEN PELVIS WO CON HISTORY: gi bleeding TECHNIQUE: Following oral administration of GI contrast axial helical imaging was performed through the abdomen and pelvis with sagittal and coronal reformatted images obtained. Comparison: None FINDINGS: There is the appearance of right hilar adenopathy. There appears to be an approximately 1.4 centimete r retro hilar nodular density in the right lower lobe. Evaluation is limited by the lack of IV contra st. There is an approximately 2.4 centimeter pleural based nodular density in the left lower lobe. There is no evidence of pleural effusion. The the heart is enlarged. The liver, spleen, pancreas, kidneys and adrenal glands are unremarkable. The right adrenal gland is absent. The left adrenal gland appears to be mildly enlarged. The gallbladder is moderately distended and unremarkable in appearance. The bowel is normal caliber. GI contrast is demonstrated to transit through the small bowel and colon to the rectum. The appendix is normal caliber. There is colonic diverticulosis without radiographic evidence of diverticulitis. There is a moderate amount of stool in the rectosigmoid colon. There is no evidence of pneumoperitoneum or free fluid. The abdominal aorta is normal caliber. There is no evidence of pathologic intra-abdominal adenopathy by CT size criteria. The urinary bladder is moderately to markedly distended but otherwise unremarkable. The uterus and adnexal are unremarkable. The bony structures are notable for degenerative facet change in the lower lumbar spine. IMPRESSION: 1. No evidence of an acute intra-abdominal process. 2. Colonic diverticulosis without definite radiographic evidence of diverticulitis. 3. Status post right adrenalectomy. Mildly enlarged left adrenal gland. 4. Moderate amount of stool in the rectosigmoid colon. 5. Appearance of right hilar adenopathy with nodular masses in the lower lobes bilaterally. Compariso n with previous imaging studies and correlation with clinical history will be helpful. 6. Cardiomegaly.
[2018-10-02 05:03] LABS: Basophils % (Auto) 0.3 % (0.0-1.8); Eosinophils # (Auto) 0.1 K/mm3 (0.0-0.4); Eosinophils % (Auto) 0.3 % (0.0-4.3); Hematocrit 22.3 % (30.3-42.9); Hemoglobin 7.1 gm/dl (10.1-14.3); Lymphocytes # (Auto) 0.8 K/mm3 (1.2-5.4); Lymphocytes % (Auto) 4.2 % (13.4-35.0); Mean Corpuscular HGB Conc 32 % (30-34); Mean Corpuscular Volume 79 fl (79-97); Monocytes # (Auto) 1.3 K/mm3 (0.0-0.8); Platelet Count 389 K/mm3 (140-440); Red Blood Count 2.81 M/mm3 (3.65-5.03); Red Cell Distribution Width 15.8 % (13.2-15.2)
[2018-10-02 05:13] LABS: Calcium 8.7 mg/dL (8.4-10.2)
[2018-10-02] MEDS: FLAGYL 500 MG/100 ML 500 MG/100 ML BAG IV SCH ×3 (05:13→21:42)
[2018-10-02] MEDS: MAXIPIME/NS 2 GM/100 ML 2 GM/100 ML BAG IV SCH (05:13)
[2018-10-02] MEDS ORDERED: NACL 0.9% 1000 ML 1,000 ML IV SCH (12:00)
[2018-10-02] MEDS ORDERED: WATER FOR IRRIG STERILE IR ONE (12:05)
[2018-10-02] MEDS ORDERED: WATER FOR IRRIG STERILE ONE (12:05)
[2018-10-02] MEDS ORDERED: XYLOCAINE 2% INFILTRATI ONE (13:08)
[2018-10-02] MEDS ORDERED: DIPRIVAN 10 MG/ML IV ONE (13:08)
--- NOTE | 2018-10-02 13:36 | Anesthesia Consultation ---
Anesthesia Consult and Med Hx Date of service: 10/02/18 - Airway Intubation Access Assessment: Possibly Difficult (patient uncoorperative with airway exam) - Pulmonary Exam CTA: Yes - Cardiac Exam Cardiac Exam: No Murmur (irregular rhythm) - Pre-Operative Health Status ASA Pre-Surgery Classification: ASA3 Proposed Anesthetic Plan: MAC - Pulmonary Hx Respiratory Symptoms: No - Cardiovascular System Hx Hypertension: Yes - Central Nervous System Hx Psychiatric Problems: Yes (dementia) - Endocrine Hx Renal Disease: Yes (TAYLOR, improving since admission) Hx Liver Disease: No Hx Insulin Dependent Diabetes: No Hx Non-Insulin Dependent Diabetes: No Hx Thyroid Disease: No - Hematic Hx Anemia: Yes (s/p transfusion this admission) - Other Systems Hx Obesity: No - Additional Comments Anesthesia Medical History Comments: Patient not coorperative with exam. Hx obtained via chart review.
--- NOTE | 2018-10-02 13:36 | Anesthesia Day of Surgery ---
Anesthesia Day of Surgery - Day of Surgery Patient Examined: Yes Patient H&P Reviewed: Yes Patient is NPO: Yes
--- NOTE | 2018-10-02 13:57 | Post Operative Note ---
Pre-op diagnosis: Rectal bleed Post-op diagnosis: other (Fecal impaction, brown stool. Aborted colonoscopy.) Findings: 1. Mid rectal fecal impaction encountered, with solid BROWN stool. Scope advanced to distal sigmoid, and then procedure aborted. 2. Visualized mucosa was normal appearing. 3. No evidence of fresh or old blood, though wiping brown stool with towel did give pinkish discoloration at edges. Procedure: Colonoscopy Anesthesia: MAC Surgeon: BERNIE SANTOS Estimated blood loss: none Pathology: none Condition: stable Disposition: floor (Monitor H/H and w/u for other causes of anemia. Laxatives to clear impaction. Pt may well have had rectal bleed due to constipation and impaction.)
--- NOTE | 2018-10-02 14:54 | Operative Report ---
PROCEDURE: Colonoscopy. PREOPERATIVE DIAGNOSES: Rectal bleeding and anemia. POSTOPERATIVE DIAGNOSES: Fecal impaction and aborted colonoscopy. SEDATION: MAC by Anesthesia. HISTORY: The patient is an 83-year-old assisted resident who has dementia and no good history is available. She was brought from the assisted with complaints of rectal bleeding of unknown duration or intensity. She was found to be anemic with a hemoglobin of 7.4 and an MCV of 76 on admission. There is a reported history of colon cancer in the past, though we do not have any details. The patient receives most of her care at [place]. DESCRIPTION OF PROCEDURE: Procedure, indications, risks, and benefits were explained and consent was obtained from the patient's niece. The patient was placed in left lateral decubitus position and sedated. Sapienti video colonoscope was passed through the rectum after digital examination and passed with minimal difficulty to the distal sigmoid colon. Further progress was precluded by the presence of solid stool. Scope was then gradually withdrawn with close inspection of mucosa. FINDINGS: 1. Fecal impaction noted in rectum and extending upwards. Scope was able to be passed into the distal sigmoid, but further progress was not possible. 2. Solid brown stool noted in rectum and sigmoid colon. There was no evidence of old or fresh blood noted. Retroflex examination was performed, which was also normal. Visualized portions of the mucosa were completely normal. The patient tolerated the procedure well without immediate complications. IMPRESSION: 1. Fecal impaction -- this may well be the cause of the rectal bleeding that has been described. 2. Visualized rectum and sigmoid were normal. 3. Aborted colonoscopy. PLAN: 1. Laxatives to clear fecal impaction. 2. Monitor H and H and transfuse as needed. 3. Check iron studies. 4. Get old records or have the patient follow up with her usual outpatient physicians in case the anemia is chronic and stable for her. Further endoscopic evaluation can then be considered if anemia is new and not previously evaluated. JOB# [id number] HRC/NTS
[2018-10-02] MEDS: PROTONIX IV SCH ×2 (15:40→21:43)
[2018-10-02] MEDS: SODIUM CHLORIDE FLUSH SYRINGE 10 ML IV SCH ×2 (15:41→21:43)
[2018-10-02] MEDS ORDERED: GOLYTELY NGTUBE ONE (17:00)
--- NOTE | 2018-10-02 20:32 | Progress Note ---
Assessment and Plan Assessment and plan: 83-year-old female patient from [place] was admitted through emergency room with rectal bleeding, evaluated by GI, recommend CT abdomen and pelvis with contrast as well as,Bowel preparation for possible colonoscopy tomorrow No new episodes of rectal bleeding hemodynamically stable, --Rectal bleeding; no episodes since admission Hemodynamically stable, GI evaluation noted and appreciated Colonoscopy today --Anemia secondary to rectal bleeding, received 1 unit PRBC transfusion Mild improvement in hemoglobin, closely monitor; --Acute kidney injury; secondary to vasomotor nephropathy Creatinine trending down, avoid nephrotoxins, gentle hydration --Hypertension: Moderate control, continue current management --Hypernatremia; continue IV fluids --Dementia; supportive care -- SIRS : by Criteria, empiric antibiotics and follow cultures, supportive care, --DVTprophylaxis: SCD --Full CODE STATUS Follow colonoscopy, if negative and patient is stable May be discharged back to SNF in 1-2 days Plan of care is reviewed with the patient's nurse History Interval history: Patient seen and examined this morning medical records reviewed Pneumonia overnight events reported by the nursing Patient is scheduled for colonoscopy today Noncommunicative, sick looking, mild distress Vital signs reviewed Hospitalist Physical - Constitutional Vitals: Temp Pulse Resp BP Pulse Ox 97.9 F 104 H 16 114/55 96 10/02/18 13:48 10/02/18 18:11 10/02/18 18:11 10/02/18 18:11 10/02/18 18:11 General appearance: Present: mild distress, cachectic - EENT Eyes: Present: PERRL, EOM intact - Neck Neck: Present: supple, normal ROM - Respiratory Respiratory effort: normal Respiratory: bilateral: diminished, negative: rales, rhonchi, wheezing - Cardiovascular Rhythm: regular Heart Sounds: Present: S1 & S2 - Extremities Extremities: no ischemia, No edema - Abdominal General gastrointestinal: soft, non-tender, non-distended, normal bowel sounds - Integumentary Integumentary: Present: clear, warm - Psychiatric Psychiatric: other (noncommunicative) - Neurologic Neurologic: other (noncommunicative) Results - Labs CBC & Chem 7: 10/02/18 04:43 10/02/18 04:43 Labs: Laboratory Last Values WBC 18.7 K/mm3 (4.5-11.0) H 10/02/18 04:43 RBC 2.81 M/mm3 (3.65-5.03) L 10/02/18 04:43 Hgb 7.1 gm/dl (10.1-14.3) L 10/02/18 04:43 Hct 22.3 % (30.3-42.9) L 10/02/18 04:43 MCV 79 fl (79-97) 10/02/18 04:43 MCH 25 pg (28-32) L 10/02/18 04:43 MCHC 32 % (30-34) 10/02/18 04:43 RDW 15.8 % (13.2-15.2) H 10/02/18 04:43 Plt Count 389 K/mm3 (140-440) 10/02/18 04:43 Lymph % (Auto) 4.2 % (13.4-35.0) L 10/02/18 04:43 [place] % (Auto) 7.0 % (0.0-7.3) 10/02/18 04:43 Eos % (Auto) 0.3 % (0.0-4.3) 10/02/18 04:43 Baso % (Auto) 0.3 % (0.0-1.8) 10/02/18 04:43 Lymph # 0.8 K/mm3 (1.2-5.4) L 10/02/18 04:43 [place] # 1.3 K/mm3 (0.0-0.8) H 10/02/18 04:43 Eos # 0.1 K/mm3 (0.0-0.4) 10/02/18 04:43 Baso # 0.0 K/mm3 (0.0-0.1) 10/02/18 04:43 Add Manual Diff Complete 09/30/18 12:43 Total Counted 100 09/30/18 12:43 Seg Neutrophils % 88.2 % (40.0-70.0) H 10/02/18 04:43 Seg Neuts % (Manual) 91.0 % (40.0-70.0) H 09/30/18 12:43 Band Neutrophils % 0 % 09/30/18 12:43 Lymphocytes % (Manual) 6.0 % (13.4-35.0) L 09/30/18 12:43 Reactive Lymphs % (Man) 0 % 09/30/18 12:43 Monocytes % (Manual) 3.0 % (0.0-7.3) 09/30/18 12:43 Eosinophils % (Manual) 0 % (0.0-4.3) 09/30/18 12:43 Basophils % (Manual) 0 % (0.0-1.8) 09/30/18 12:43 Metamyelocytes % 0 % 09/30/18 12:43 Myelocytes % 0 % 09/30/18 12:43 Promyelocytes % 0 % 09/30/18 12:43 Blast Cells % 0 % 09/30/18 12:43 Nucleated RBC % Not Reportable 09/30/18 12:43 Seg Neutrophils # 16.5 K/mm3 (1.8-7.7) H 10/02/18 04:43 Seg Neutrophils # Man 18.8 K/mm3 (1.8-7.7) H 09/30/18 12:43 Band Neutrophils # 0.0 K/mm3 09/30/18 12:43 Lymphocytes # (Manual) 1.2 K/mm3 (1.2-5.4) 09/30/18 12:43 Abs React Lymphs (Man) 0.0 K/mm3 09/30/18 12:43 Monocytes # (Manual) 0.6 K/mm3 (0.0-0.8) 09/30/18 12:43 Eosinophils # (Manual) 0.0 K/mm3 (0.0-0.4) 09/30/18 12:43 Basophils # (Manual) 0.0 K/mm3 (0.0-0.1) 09/30/18 12:43 Metamyelocytes # 0.0 K/mm3 09/30/18 12:43 Myelocytes # 0.0 K/mm3 09/30/18 12:43 Promyelocytes # 0.0 K/mm3 09/30/18 12:43 Blast Cells # 0.0 K/mm3 09/30/18 12:43 WBC Morphology Not Reportable 09/30/18 12:43 Hypersegmented Neuts Not Reportable 09/30/18 12:43 Hyposegmented Neuts Not Reportable 09/30/18 12:43 Hypogranular Neuts Not Reportable 09/30/18 12:43 Smudge Cells Not Reportable 09/30/18 12:43 Toxic Granulation Not Reportable 09/30/18 12:43 Toxic Vacuolation Not Reportable 09/30/18 12:43 Dohle Bodies Not Reportable 09/30/18 12:43 Pelger-Huet Anomaly Not Reportable 09/30/18 12:43 Hao Rods Not Reportable 09/30/18 12:43 Platelet Estimate Appears increased 09/30/18 12:43 Clumped Platelets Not Reportable 09/30/18 12:43 Plt Clumps, EDTA Not Reportable 09/30/18 12:43 Large Platelets Few 09/30/18 12:43 Giant Platelets Not Reportable 09/30/18 12:43 Platelet Satelliting Not Reportable 09/30/18 12:43 Plt Morphology Comment Not Reportable 09/30/18 12:43 RBC Morphology Not Reportable 09/30/18 12:43 Dimorphic RBCs Not Reportable 09/30/18 12:43 Polychromasia Not Reportable 09/30/18 12:43 Hypochromasia 1+ 09/30/18 12:43 Poikilocytosis Not Reportable 09/30/18 12:43 Anisocytosis 1+ 09/30/18 12:43 Microcytosis 1+ 09/30/18 12:43 Macrocytosis Not Reportable 09/30/18 12:43 Spherocytes Not Reportable 09/30/18 12:43 Pappenheimer Bodies Not Reportable 09/30/18 12:43 Sickle Cells Not Reportable 09/30/18 12:43 Target Cells Rare 09/30/18 12:43 Tear Drop Cells Not Reportable 09/30/18 12:43 Ovalocytes 1+ 09/30/18 12:43 Helmet Cells Rare 09/30/18 12:43 [place] Bodies Not Reportable 09/30/18 12:43 [place] Rings Not Reportable 09/30/18 12:43 [place]io Cells Not Reportable 09/30/18 12:43 Bite Cells Not Reportable 09/30/18 12:43 Crenated Cell Not Reportable 09/30/18 12:43 Elliptocytes Few 09/30/18 12:43 Acanthocytes (Spur) Not Reportable 09/30/18 12:43 Rouleaux Not Reportable 09/30/18 12:43 Hemoglobin C Crystals Not Reportable 09/30/18 12:43 Schistocytes Not Reportable 09/30/18 12:43 Malaria parasites Not Reportable 09/30/18 12:43 Denis Bodies Not Reportable 09/30/18 12:43 Hem Pathologist Commnt No 09/30/18 12:43 PT 16.3 Sec. (12.2-14.9) H 09/30/18 12:43 INR 1.27 (0.87-1.13) H 09/30/18 12:43 APTT 20.0 Sec. (24.2-36.6) L 09/30/18 12:43 Sodium 151 mmol/L (137-145) H 10/02/18 04:43 Potassium 4.4 mmol/L (3.6-5.0) 10/02/18 04:43 Chloride 111.6 mmol/L (98-107) H 10/02/18 04:43 Carbon Dioxide 24 mmol/L (22-30) 10/02/18 04:43 Anion Gap 20 mmol/L 10/02/18 04:43 BUN 62 mg/dL (7-17) H 10/02/18 04:43 Creatinine 1.6 mg/dL (0.7-1.2) H 10/02/18 04:43 Estimated GFR 37 ml/min 10/02/18 04:43 BUN/Creatinine Ratio 39 % 10/02/18 04:43 Glucose 214 mg/dL (65-100) H 10/02/18 04:43 Lactic Acid 1.50 mmol/L (0.7-2.0) 09/30/18 14:59 Calcium 8.7 mg/dL (8.4-10.2) 10/02/18 04:43 Total Bilirubin 0.40 mg/dL (0.1-1.2) 09/30/18 12:43 AST 14 units/L (5-40) 09/30/18 12:43 ALT 7 units/L (7-56) 09/30/18 12:43 Alkaline Phosphatase 105 units/L (35-129) 09/30/18 12:43 Total Protein 8.6 g/dL (6.3-8.2) H 09/30/18 12:43 Albumin 3.3 g/dL (3.9-5) L 09/30/18 12:43 Albumin/Globulin Ratio 0.6 % 09/30/18 12:43 Lipase 29 units/L (13-60) 09/30/18 12:43 Blood Type AB POSITIVE 09/30/18 12:43 Antibody Screen Negative 09/30/18 12:43 Crossmatch See Detail 09/30/18 12:43
[2018-10-02] MEDS: D5/0.45NS 1,000 ML IV SCH (22:51)
[2018-10-03] MEDS: FLAGYL 500 MG/100 ML 500 MG/100 ML BAG IV SCH ×3 (06:00→21:08)
[2018-10-03 06:23] LABS: Mean Corpuscular HGB Conc 32 % (30-34); Mean Corpuscular Volume 79 fl (79-97); Platelet Count 258 K/mm3 (140-440); Red Blood Count 2.29 M/mm3 (3.65-5.03); Red Cell Distribution Width 16.1 % (13.2-15.2)
[2018-10-03 06:48] LABS: Hemoglobin 5.8 gm/dl (10.1-14.3)
[2018-10-03 06:50] LABS: Calcium 7.8 mg/dL (8.4-10.2)
[2018-10-03] MEDS ORDERED: NACL 0.9% 500 ML 500 ML IV NR ×2 (08:00→19:29)
[2018-10-03] MEDS: SODIUM CHLORIDE FLUSH SYRINGE 10 ML IV SCH ×2 (09:16→21:10)
[2018-10-03] MEDS: MAXIPIME/NS 2 GM/100 ML 2 GM/100 ML BAG IV SCH (09:16)
[2018-10-03] MEDS: PROTONIX IV SCH ×2 (09:18→21:08)
[2018-10-03 09:37] LABS: Hemoglobin 5.5 gm/dl (10.1-14.3)
[2018-10-03 09:45] LABS: Basophils % (Manual) 0 % (0.0-1.8); Eosinophils % (Manual) 0 % (0.0-4.3); Total Cells Counted 100
[2018-10-03 09:47] LABS: Anisocytosis 1+; Hypochromasia Few; Ovalocytes Few; Platelet Estimate Consistent w Auto; Poikilocytosis 1+
--- NOTE | 2018-10-03 11:28 | Gastroenterology Progress Note ---
<TAM HERNANDEZ - Last Filed: 10/03/18 12:01> Assessment and Plan 1.rectal bleeding 2.anemia (unknown baseline) -H/H 5.5/17.0-noted drop in H/H overnight-transfusion pending -continue to monitor H/H and transfuse as needed -currently slightly hypotensive- monitor closely -BMs x 3 overnight after receiving colon prep for fecal impaction- no active signs of bleeding overnight or this am -s/p attempted colonoscopy yesterday that revealed a fecal impaction with brown stool (visualized mucosa normal appearin; no evidence of fresh or old blood) -abd CT on 09/30 negative for acute findings -etiology unclear- no clinical evidence of GI bleeding -will order iron studies and haptoglobin -recommend hematology consult -continue PPI and supportive care -further recommendations to follow Subjective Date of service: 10/03/18 Principal diagnosis: rectal bleeding Interval history: Patient with BMs x 3 overnight per nursing after receiving colon prep. No active sign of bleeding overnight or this am per nursing, however noted drop in H/H this am. Objective - Constitutional Vitals: Temp Pulse Resp BP Pulse Ox 98.2 F 131 H 18 97/41 100 10/03/18 08:00 10/03/18 11:21 10/03/18 11:21 10/03/18 11:21 10/03/18 11:21 General appearance: mild distress, other (noncommunicative) - Respiratory Respiratory: bilateral: diminished - Cardiovascular Rhythm: other (tachycardia) - Gastrointestinal General gastrointestinal: Present: soft, non-tender, non-distended, normal bowel sounds - Labs CBC & Chem 7: 10/03/18 08:45 10/03/18 06:04 Labs: Laboratory Results - last 24 hr 09/30/18 10/03/18 10/03/18 12:43 06:04 06:04 WBC 17.5 H RBC 2.29 L Hgb 5.8 L* Hct 18.0 L* MCV 79 MCH 25 L MCHC 32 RDW 16.1 H Plt Count [address] [place] % (Auto) Recreational Counselor Add Manual Diff Complete Total Counted 100 Seg Neuts % (Manual) 46.0 Band Neutrophils % 0 Lymphocytes % (Manual) 47.0 H Reactive Lymphs % (Man) 0 Monocytes % (Manual) 7.0 Eosinophils % (Manual) 0 Basophils % (Manual) 0 Metamyelocytes % 0 Myelocytes % 0 Promyelocytes % 0 Blast Cells % 0 Nucleated RBC % Not Reportable Seg Neutrophils # Man 8.1 H Band Neutrophils # 0.0 Lymphocytes # (Manual) 8.2 H Abs React Lymphs (Man) 0.0 Monocytes # (Manual) 1.2 H Eosinophils # (Manual) 0.0 Basophils # (Manual) 0.0 Metamyelocytes # 0.0 Myelocytes # 0.0 Promyelocytes # 0.0 Blast Cells # 0.0 WBC Morphology Not Reportable Hypersegmented Neuts Not Reportable Hyposegmented Neuts Not Reportable Hypogranular Neuts Not Reportable Smudge Cells Not Reportable Toxic Granulation Not Reportable Toxic Vacuolation Not Reportable Dohle Bodies Not Reportable Pelger-Huet Anomaly Not Reportable Hao Rods Not Reportable Platelet Estimate Consistent w auto Clumped Platelets Not Reportable Plt Clumps, EDTA Not Reportable Large Platelets Not Reportable Giant Platelets Not Reportable Platelet Satelliting Not Reportable Plt Morphology Comment Not Reportable RBC Morphology Not Reportable Dimorphic RBCs Not Reportable Polychromasia Not Reportable Hypochromasia Few Poikilocytosis 1+ Anisocytosis 1+ Microcytosis Not Reportable Macrocytosis Not Reportable Spherocytes Not Reportable Pappenheimer Bodies Not Reportable Sickle Cells Not Reportable Target Cells Not Reportable Tear Drop Cells Not Reportable Ovalocytes Few Helmet Cells Not Reportable [place] Bodies Not Reportable Supply Rings Not Reportable [place] Cells Not Reportable Bite Cells Not Reportable Crenated Cell Not Reportable Elliptocytes Not Reportable Acanthocytes (Spur) Not Reportable Rouleaux Not Reportable Hemoglobin C Crystals Not Reportable Schistocytes Not Reportable Malaria parasites Not Reportable Denis Bodies Not Reportable Hem Pathologist Commnt No Sodium 154 H Potassium 3.0 L D Chloride 112.4 H Carbon Dioxide 25 Anion Gap 20 BUN 28 H Creatinine 1.1 Estimated GFR 58 BUN/Creatinine Ratio 25 Glucose 132 H Calcium 7.8 L Blood Type AB POSITIVE Antibody Screen Negative Crossmatch See Detail 10/03/18 08:45 WBC RBC Hgb 5.5 L* Hct 17.0 L* MCV MCH MCHC RDW Plt Count [place] % (Auto) Add Manual Diff Total Counted Seg Neuts % (Manual) Band Neutrophils % Lymphocytes % (Manual) Reactive Lymphs % (Man) Monocytes % (Manual) Eosinophils % (Manual) Basophils % (Manual) Metamyelocytes % Myelocytes % Promyelocytes % Blast Cells % Nucleated RBC % Seg Neutrophils # Man Band Neutrophils # Lymphocytes # (Manual) Abs React Lymphs (Man) Monocytes # (Manual) Eosinophils # (Manual) Basophils # (Manual) Metamyelocytes # Myelocytes # Promyelocytes # Blast Cells # WBC Morphology Hypersegmented Neuts Hyposegmented Neuts Hypogranular Neuts Smudge Cells Toxic Granulation Toxic Vacuolation Dohle Bodies Pelger-Huet Anomaly Hao Rods Platelet Estimate Clumped Platelets Plt Clumps, EDTA Large Platelets Giant Platelets Platelet Satelliting Plt Morphology Comment RBC Morphology Dimorphic RBCs Polychromasia Hypochromasia Poikilocytosis Anisocytosis Microcytosis Macrocytosis Spherocytes Pappenheimer Bodies Sickle Cells Target Cells Tear Drop Cells Ovalocytes Helmet Cells [place] Bodies Supply Rings [place] Cells Bite Cells Crenated Cell Elliptocytes Acanthocytes (Spur) Rouleaux Hemoglobin C Crystals Schistocytes Malaria parasites Denis Bodies Hem Pathologist Commnt Sodium Potassium Chloride Carbon Dioxide Anion Gap BUN Creatinine Estimated GFR BUN/Creatinine Ratio Glucose Calcium Blood Type Antibody Screen Crossmatch <DANIELLEBERNIE R - Last Filed: 10/03/18 15:09> Assessment and Plan Pt unchanged. Drop in H/H noted. No evidence of rubio GI bleed. Rectal - disimpacted to clear, ~5 brown stool balls. No blood. Recommendations as noted above. Discussed with Dr. Vance. Objective - Constitutional Vitals: Temp Pulse Resp BP Pulse Ox 98.2 F 155 H 17 103/66 82 L 10/03/18 14:40 10/03/18 14:30 10/03/18 14:30 10/03/18 14:30 10/03/18 14:21 - Labs CBC & Chem 7: 10/03/18 08:45 10/03/18 06:04 Labs: Laboratory Results - last 24 hr 09/30/18 10/03/18 10/03/18 12:43 06:04 06:04 WBC 17.5 H RBC 2.29 L Hgb 5.8 L* Hct 18.0 L* MCV 79 MCH 25 L MCHC 32 RDW 16.1 H Plt Count 258 [place] % (Auto) Recreational Counselor Add Manual Diff Complete Total Counted 100 Seg Neuts % (Manual) 46.0 Band Neutrophils % 0 Lymphocytes % (Manual) 47.0 H Reactive Lymphs % (Man) 0 Monocytes % (Manual) 7.0 Eosinophils % (Manual) 0 Basophils % (Manual) 0 Metamyelocytes % 0 Myelocytes % 0 Promyelocytes % 0 Blast Cells % 0 Nucleated RBC % Not Reportable Seg Neutrophils # Man 8.1 H Band Neutrophils # 0.0 Lymphocytes # (Manual) 8.2 H Abs React Lymphs (Man) 0.0 Monocytes # (Manual) 1.2 H Eosinophils # (Manual) 0.0 Basophils # (Manual) 0.0 Metamyelocytes # 0.0 Myelocytes # 0.0 Promyelocytes # 0.0 Blast Cells # 0.0 WBC Morphology Not Reportable Hypersegmented Neuts Not Reportable Hyposegmented Neuts Not Reportable Hypogranular Neuts Not Reportable Smudge Cells Not Reportable Toxic Granulation Not Reportable Toxic Vacuolation Not Reportable Dohle Bodies Not Reportable Pelger-Huet Anomaly Not Reportable Hao Rods Not Reportable Platelet Estimate Consistent w auto Clumped Platelets Not Reportable Plt Clumps, EDTA Not Reportable Large Platelets Not Reportable Giant Platelets Not Reportable Platelet Satelliting Not Reportable Plt Morphology Comment Not Reportable RBC Morphology Not Reportable Dimorphic RBCs Not Reportable Polychromasia Not Reportable Hypochromasia Few Poikilocytosis 1+ Anisocytosis 1+ Microcytosis Not Reportable Macrocytosis Not Reportable Spherocytes Not Reportable Pappenheimer Bodies Not Reportable Sickle Cells Not Reportable Target Cells Not Reportable Tear Drop Cells Not Reportable Ovalocytes Few Helmet Cells Not Reportable [place] Bodies Not Reportable Supply Rings Not Reportable [place] Cells Not Reportable Bite Cells Not Reportable Crenated Cell Not Reportable Elliptocytes Not Reportable Acanthocytes (Spur) Not Reportable Rouleaux Not Reportable Hemoglobin C Crystals Not Reportable Schistocytes Not Reportable Malaria parasites Not Reportable Denis Bodies Not Reportable Hem Pathologist Commnt No Sodium 154 H Potassium 3.0 L D Chloride 112.4 H Carbon Dioxide 25 Anion Gap 20 BUN 28 H Creatinine 1.1 Estimated GFR 58 BUN/Creatinine Ratio 25 Glucose 132 H Calcium 7.8 L Iron TIBC Blood Type AB POSITIVE Antibody Screen Negative Crossmatch See Detail 10/03/18 10/03/18 06:04 08:45 WBC RBC Hgb 5.5 L* Hct 17.0 L* MCV MCH MCHC RDW Plt Count [place] % (Auto) Add Manual Diff Total Counted Seg Neuts % (Manual) Band Neutrophils % Lymphocytes % (Manual) Reactive Lymphs % (Man) Monocytes % (Manual) Eosinophils % (Manual) Basophils % (Manual) Metamyelocytes % Myelocytes % Promyelocytes % Blast Cells % Nucleated RBC % Seg Neutrophils # Man Band Neutrophils # Lymphocytes # (Manual) Abs React Lymphs (Man) Monocytes # (Manual) Eosinophils # (Manual) Basophils # (Manual) Metamyelocytes # Myelocytes # Promyelocytes # Blast Cells # WBC Morphology Hypersegmented Neuts Hyposegmented Neuts Hypogranular Neuts Smudge Cells Toxic Granulation Toxic Vacuolation Dohle Bodies Pelger-Huet Anomaly Hao Rods Platelet Estimate Clumped Platelets Plt Clumps, EDTA Large Platelets Giant Platelets Platelet Satelliting Plt Morphology Comment RBC Morphology Dimorphic RBCs Polychromasia Hypochromasia Poikilocytosis Anisocytosis Microcytosis Macrocytosis Spherocytes Pappenheimer Bodies Sickle Cells Target Cells Tear Drop Cells Ovalocytes Helmet Cells [place] Bodies Supply Rings [place] Cells Bite Cells Crenated Cell Elliptocytes Acanthocytes (Spur) Rouleaux Hemoglobin C Crystals Schistocytes Malaria parasites Denis Bodies Hem Pathologist Commnt Sodium Potassium Chloride Carbon Dioxide Anion Gap BUN Creatinine Estimated GFR BUN/Creatinine Ratio Glucose Calcium Iron 14 L TIBC 101 L Blood Type Antibody Screen Crossmatch
[2018-10-03] MEDS ORDERED: K-DUR PO NR (12:30)
[2018-10-03 13:30] LABS: Iron 14 ug/dL (37-170); Total Iron Binding Capacity 101 mcg/dL (250-450)
[2018-10-03] MEDS: CORDARONE 900 MG in D5W 482 ML IV SCH ×2 (14:34→21:11)
--- NOTE | 2018-10-03 15:34 | Progress Note ---
Assessment and Plan / Rectal bleeding; no episodes since admission GI evaluation noted and appreciated s/p attempted colonoscopy yesterday that revealed a fecal impaction with brown stool (visualized mucosa normal appearin; no evidence of fresh or old blood) -abd CT on 09/30 negative for acute findings / Anemia secondary to rectal bleeding ?, Hb 5.6 today Ordered 2 more units of blood transfusion closely monitor; ordered LFT, haptoglobin /New onset atrial fib - place on amioderone drip, no AC as pt with severe anemia, consult cardiology, obtain 2d echo /Acute kidney injury; secondary to vasomotor nephropathy monitor Creatinine, avoid nephrotoxins, gentle hydration /-Hypertension: Moderate control, continue current management /-Hypernatremia; continue hypotonic IV fluids /-Dementia; supportive care / SIRS : by Criteria, empiric antibiotics and follow cultures, supportive care, /-DVTprophylaxis: SCD / DNR CODE STATUS Brief history: 83-year-old female patient from senior living was admitted through emergency room with rectal bleeding, evaluated by GI, recommend CT abdomen and pelvis with contrast showed no acute process, s/p colonoscopy showed stool impaction. No new episodes of rectal bleeding. started on amioderone drip for atrial fib. Physical exam: General appearance: Present: mild distress, cachectic - EENT Eyes: Present: PERRL, EOM intact - Neck Neck: Present: supple, normal ROM - Respiratory Respiratory effort: normal Respiratory: bilateral: diminished, negative: rales, rhonchi, wheezing - Cardiovascular Rhythm: regular Heart Sounds: Present: S1 & S2 - Extremities Extremities: no ischemia, No edema - Abdominal General gastrointestinal: soft, non-tender, non-distended, normal bowel sounds - Integumentary Integumentary: Present: clear, warm - Psychiatric Psychiatric: other (dementia ) - Neurologic Neurologic: other (noncommunicative) Subjective Date of service: 10/03/18 Principal diagnosis: rectal bleeding Interval history: Patient seen and examined, patient remained altered and unable to provide any history Discussed with family by phone, wished for DNR, states will sign the paper tomorrow Hb dropped to 5.6 this am w/o any overt sign of bleeding Also noted Atrial fib on monitor Objective - Constitutional Vitals: Vital Signs - 12hr 10/03/18 10/03/18 10/03/18 03:41 03:51 04:00 Temperature 98.2 F Pulse Rate 110 H 114 H Pulse Rate [ 109 H From Monitor] Respiratory 14 16 16 Rate Blood Pressure 123/96 123/96 O2 Sat by Pulse 100 100 100 Oximetry 10/03/18 10/03/18 10/03/18 04:01 04:11 04:21 Temperature Pulse Rate 101 H 104 H 114 H Pulse Rate [ From Monitor] Respiratory 13 17 12 Rate Blood Pressure 123/96 123/96 123/96 O2 Sat by Pulse 100 100 78 L Oximetry 10/03/18 10/03/18 10/03/18 04:31 04:41 04:51 Temperature Pulse Rate 95 H 94 H 80 Pulse Rate [ From Monitor] Respiratory 13 15 12 Rate Blood Pressure 123/96 126/50 126/50 O2 Sat by Pulse 81 L 100 Oximetry 10/03/18 10/03/18 10/03/18 05:00 05:11 05:21 Temperature Pulse Rate 82 80 114 H Pulse Rate [ From Monitor] Respiratory 12 16 16 Rate Blood Pressure 117/45 117/45 117/45 O2 Sat by Pulse Oximetry 10/03/18 10/03/18 10/03/18 05:31 05:41 05:51 Temperature Pulse Rate 109 H 82 117 H Pulse Rate [ From Monitor] Respiratory 13 10 L 18 Rate Blood Pressure 117/45 117/45 117/45 O2 Sat by Pulse Oximetry 10/03/18 10/03/18 10/03/18 06:01 06:11 06:21 Temperature Pulse Rate 99 H 136 H Pulse Rate [ From Monitor] Respiratory 20 18 23 Rate Blood Pressure 117/45 147/51 147/51 O2 Sat by Pulse Oximetry 10/03/18 10/03/18 10/03/18 06:31 06:41 06:51 Temperature Pulse Rate 115 H 125 H 90 Pulse Rate [ From Monitor] Respiratory 20 17 14 Rate Blood Pressure 147/51 147/51 147/51 O2 Sat by Pulse Oximetry 10/03/18 10/03/18 10/03/18 07:01 07:11 07:21 Temperature Pulse Rate 108 H 103 H 102 H Pulse Rate [ From Monitor] Respiratory 17 10 L 11 L Rate Blood Pressure 107/55 107/55 107/55 O2 Sat by Pulse Oximetry 10/03/18 10/03/18 10/03/18 07:31 07:41 07:51 Temperature Pulse Rate 104 H 101 H 120 H Pulse Rate [ From Monitor] Respiratory 15 17 15 Rate Blood Pressure 107/55 107/55 107/55 O2 Sat by Pulse Oximetry 10/03/18 10/03/18 10/03/18 08:00 08:01 08:11 Temperature 98.2 F Pulse Rate 93 H 114 H Pulse Rate [ 98 H From Monitor] Respiratory 16 15 17 Rate Blood Pressure 116/43 116/43 O2 Sat by Pulse 100 Oximetry 10/03/18 10/03/18 10/03/18 08:21 08:31 08:41 Temperature Pulse Rate 111 H 112 H 108 H Pulse Rate [ From Monitor] Respiratory 16 17 16 Rate Blood Pressure 116/43 116/43 116/43 O2 Sat by Pulse 72 L Oximetry 10/03/18 10/03/18 10/03/18 08:51 09:01 09:11 Temperature Pulse Rate 143 H 109 H 95 H Pulse Rate [ From Monitor] Respiratory 15 17 14 Rate Blood Pressure 116/43 116/43 96/58 O2 Sat by Pulse 96 Oximetry 10/03/18 10/03/18 10/03/18 09:21 09:31 09:41 Temperature Pulse Rate 108 H 90 109 H Pulse Rate [ From Monitor] Respiratory 15 15 11 L Rate Blood Pressure 96/58 96/58 96/58 O2 Sat by Pulse Oximetry 10/03/18 10/03/18 10/03/18 09:51 10:00 10:01 Temperature Pulse Rate 104 H 130 H 128 H Pulse Rate [ From Monitor] Respiratory 12 17 Rate Blood Pressure 96/58 202/163 O2 Sat by Pulse Oximetry 10/03/18 10/03/18 10/03/18 10:11 10:21 10:31 Temperature Pulse Rate 147 H 142 H 152 H Pulse Rate [ From Monitor] Respiratory 22 19 19 Rate Blood Pressure 202/163 195/134 202/163 O2 Sat by Pulse 82 L Oximetry 10/03/18 10/03/18 10/03/18 10:41 10:51 11:01 Temperature Pulse Rate 145 H 164 H 159 H Pulse Rate [ From Monitor] Respiratory 23 20 18 Rate Blood Pressure 202/163 202/163 97/41 O2 Sat by Pulse 98 99 100 Oximetry 10/03/18 10/03/18 10/03/18 11:11 11:21 11:31 Temperature Pulse Rate 149 H 131 H 146 H Pulse Rate [ From Monitor] Respiratory 18 18 20 Rate Blood Pressure 97/41 97/41 97/41 O2 Sat by Pulse 100 100 100 Oximetry 10/03/18 10/03/18 10/03/18 11:41 11:51 12:00 Temperature 97.7 F Pulse Rate 127 H 158 H Pulse Rate [ 98 H From Monitor] Respiratory 19 18 16 Rate Blood Pressure 97/41 97/41 O2 Sat by Pulse 100 100 100 Oximetry 10/03/18 10/03/18 10/03/18 12:01 12:10 12:11 Temperature 98.1 F Pulse Rate 164 H 121 H Pulse Rate [ From Monitor] Respiratory 21 19 Rate Blood Pressure 103/64 103/64 O2 Sat by Pulse 100 100 Oximetry 10/03/18 10/03/18 10/03/18 12:21 12:31 12:40 Temperature 97.7 F Pulse Rate 151 H 138 H Pulse Rate [ From Monitor] Respiratory 15 19 Rate Blood Pressure 103/64 109/73 O2 Sat by Pulse 100 100 Oximetry 10/03/18 10/03/18 10/03/18 12:41 12:51 13:01 Temperature Pulse Rate 133 H 132 H 160 H Pulse Rate [ From Monitor] Respiratory 18 18 16 Rate Blood Pressure 106/46 106/46 102/51 O2 Sat by Pulse 100 100 100 Oximetry 10/03/18 10/03/18 10/03/18 13:10 13:11 13:21 Temperature 97.1 F L Pulse Rate 150 H 148 H Pulse Rate [ From Monitor] Respiratory 18 20 Rate Blood Pressure 103/64 103/64 O2 Sat by Pulse 100 100 Oximetry 10/03/18 10/03/18 10/03/18 13:31 13:40 13:42 Temperature 98 F Pulse Rate 160 H 126 H Pulse Rate [ From Monitor] Respiratory 20 16 Rate Blood Pressure 102/53 102/53 O2 Sat by Pulse 100 100 Oximetry 10/03/18 10/03/18 10/03/18 13:50 14:01 14:10 Temperature 98.1 F Pulse Rate 144 H 152 H Pulse Rate [ From Monitor] Respiratory 19 17 Rate Blood Pressure 113/59 O2 Sat by Pulse 100 100 Oximetry 10/03/18 10/03/18 10/03/18 14:11 14:21 14:30 Temperature Pulse Rate 154 H 154 H 155 H Pulse Rate [ From Monitor] Respiratory 19 20 17 Rate Blood Pressure 113/59 113/59 103/66 O2 Sat by Pulse 82 L Oximetry 10/03/18 14:40 Temperature 98.2 F Pulse Rate Pulse Rate [ From Monitor] Respiratory Rate Blood Pressure O2 Sat by Pulse Oximetry - Labs CBC & Chem 7: 10/04/18 04:25 10/05/18 04:26 Labs: Abnormal lab results 09/30/18 10/03/18 10/03/18 Range/Units 12:43 06:04 06:04 WBC 17.5 H (4.5-11.0) K/mm3 RBC 2.29 L (3.65-5.03) M/mm3 Hgb 5.8 L* (10.1-14.3) gm/dl Hct 18.0 L* (30.3-42.9) % MCH 25 L (28-32) pg RDW 16.1 H (13.2-15.2) % Lymphocytes % (Manual) 47.0 H (13.4-35.0) % Seg Neutrophils # Man 8.1 H (1.8-7.7) K/mm3 Lymphocytes # (Manual) 8.2 H (1.2-5.4) K/mm3 Monocytes # (Manual) 1.2 H (0.0-0.8) K/mm3 Sodium 154 H (137-145) mmol/L Potassium 3.0 L D (3.6-5.0) mmol/L Chloride 112.4 H (98-107) mmol/L BUN 28 H (7-17) mg/dL Glucose 132 H (65-100) mg/dL Calcium 7.8 L (8.4-10.2) mg/dL Iron (37-170) ug/dL TIBC (250-450) mcg/dL Crossmatch See Detail 10/03/18 10/03/18 Range/Units 06:04 08:45 WBC (4.5-11.0) K/mm3 RBC (3.65-5.03) M/mm3 Hgb 5.5 L* (10.1-14.3) gm/dl Hct 17.0 L* (30.3-42.9) % MCH (28-32) pg RDW (13.2-15.2) % Lymphocytes % (Manual) (13.4-35.0) % Seg Neutrophils # Man (1.8-7.7) K/mm3 Lymphocytes # (Manual) (1.2-5.4) K/mm3 Monocytes # (Manual) (0.0-0.8) K/mm3 Sodium (137-145) mmol/L Potassium (3.6-5.0) mmol/L Chloride (98-107) mmol/L BUN (7-17) mg/dL Glucose (65-100) mg/dL Calcium (8.4-10.2) mg/dL Iron 14 L (37-170) ug/dL TIBC 101 L (250-450) mcg/dL Crossmatch
--- NOTE | 2018-10-03 16:14 | Consultation ---
Addendum entered and electronically signed by LAURIE AVILA MD 10/03/18 17:55: To continue IV amiodarone. F/U with G.[facility]. F/U Echo (pending). Original Note: History of Present Illness Consult date: 10/03/18 Requesting physician: TERESA CORREIA Consult reason: atrial fibrillation History of present illness: The pt is an 83 YO Female [facility] Res[facility] at [facility] with dementia, HTN, CVA, HLD, Colon Cancer, Anemia who presented to ED for evaluation of rectal bleeding. Pt is confused and unable to provide history and thus HPI obtained per the chart. Pt history taken from ED staff, EMS, and SNF staff. As per staff, the patient was found to have rectal bleeding. Pt found to have severe anemia and acute renal failure following admission. Pt was noted to develop AFib with RVR this AM and thus cardiology has been consulted. Past History Past Medical History: anemia, cancer, hypertension, hyperlipidemia, stroke Past Surgical History: No surgical history, Other (reviewed) Social history: single. denies: smoking, alcohol abuse, IV drug use Family history: no significant family history (reviewed) Medications and Allergies Allergies Allergy/AdvReac Type Severity Reaction Status Date / Time No Known Allergies Allergy Verified 09/30/18 11:47 Home Medications Medication Instructions Recorded Confirmed Last Taken Type Acetaminophen [Tylenol] 650 mg PO Q6HR PRN 09/30/18 09/30/18 Unknown History Ascorbic Acid [Vitamin C] 500 mg PO QDAY 09/30/18 09/30/18 Unknown History Aspirin [Aspirin BABY CHEW TAB] 81 mg PO QDAY 09/30/18 09/30/18 Unknown History Atorvastatin Calcium 80 mg PO DAILY 09/30/18 09/30/18 Unknown History Bisacodyl 10 mg RC Q24H 09/30/18 09/30/18 Unknown History Calcium Carbonate/Vitamin D3 1 each PO DAILY 09/30/18 09/30/18 Unknown History [Calcium 500-Vit D3 200 Tablet] Carvedilol [Coreg] 3.125 mg PO BID 09/30/18 09/30/18 Unknown History Docusate Sodium [Colace] 100 mg PO BID PRN 09/30/18 09/30/18 Unknown History Ergocalciferol [Vitamin D2] 1 cap PO QWEEK 09/30/18 09/30/18 Unknown History Ferrous Sulfate [Iron] 325 mg PO DAILY 09/30/18 09/30/18 Unknown History Megestrol Acetate 400 mg PO BID 09/30/18 09/30/18 Unknown History Mirtazapine [Remeron] 15 mg PO QHS 09/30/18 09/30/18 Unknown History Multivitamin Tab W-MINERAL 1 each PO QD 09/30/18 09/30/18 Unknown History [Multiple Vitamin/Mineral (Theragran M)] Sennosides [Senna] 17.2 mg PO DAILY 09/30/18 09/30/18 Unknown History amLODIPine [Norvasc] 10 mg PO DAILY 09/30/18 09/30/18 Unknown History hydroCHLOROthiazide [HCTZ] 25 mg PO QDAY 09/30/18 09/30/18 Unknown History Active Meds: Active Medications Albuterol (Proventil) 2.5 mg IH Q3HRT PRN PRN Reason: Shortness Of Breath Metronidazole (Flagyl 500 Mg/100 Ml) 500 mg in 100 mls @ 100 mls/hr IV Q8HR FORD; Protocol Last Admin: 10/03/18 13:31 Dose: 100 mls/hr Documented by: Dextrose/Sodium Chloride (D5/0.45ns) 1,000 mls @ 75 mls/hr IV DIRECT FORD Sodium Chloride (Nacl 0.9% 1000 Ml) 1,000 mls @ 50 mls/hr IV DIRECT FORD Last Admin: 10/02/18 12:19 Dose: 50 mls/hr Documented by: Cefepime HCl (Maxipime/Ns 2 Gm/100 Ml) 2 gm in 100 mls @ 200 mls/hr IV Q24HR S ; Protocol Last Admin: 10/03/18 09:16 Dose: 200 mls/hr Documented by: Amiodarone HCl 900 mg/ (Dextrose) 500 mls @ 33.33 mls/hr IV DIRECT FORD; Protocol Last Admin: 10/03/18 14:34 Dose: 1 mg/min, 33.33 mls/hr Documented by: Pantoprazole Sodium (Protonix) 40 mg IV BID FORD Last Admin: 10/03/18 09:18 Dose: 40 mg Documented by: Polyethylene Glycol/Electrolytes (Golytely) 4,000 ml PO ONCE ONE Stop: 10/03/18 17:01 Sodium Chloride (Sodium Chloride Flush Syringe 10 Ml) 10 ml IV BID FORD Last Admin: 10/03/18 09:16 Dose: 10 ml Documented by: Sodium Chloride (Sodium Chloride Flush Syringe 10 Ml) 10 ml IV PRN PRN PRN Reason: LINE FLUSH Review of Systems ROS unobtainable: due to mental status Physical Examination Vital Signs Temp Pulse Resp BP Pulse Ox 97.6 F 109 H 16 112/60 97 09/30/18 11:49 09/30/18 11:49 09/30/18 11:49 09/30/18 11:49 09/30/18 11:49 General appearance: no acute distress, other (lethargic) HEENT: Positive: PERRL Cardiac: Positive: irregularly irregular, S1/S2, Tachycardia Lungs: Positive: Decreased Breath Sounds Neuro: Positive: Other (LATASHA) Skin: Negative: Wound Extremities: Absent: edema Results 10/03/18 08:45 10/03/18 06:04 CBC 10/03/18 10/03/18 Range/Units 06:04 08:45 WBC 17.5 H (4.5-11.0) K/mm3 RBC 2.29 L (3.65-5.03) M/mm3 Hgb 5.8 L* 5.5 L* (10.1-14.3) gm/dl Hct 18.0 L* 17.0 L* (30.3-42.9) % Plt Count 258 (140-440) K/mm3 Comprehensive Metabolic Panel 10/03/18 Range/Units 06:04 Sodium 154 H (137-145) mmol/L Potassium 3.0 L D (3.6-5.0) mmol/L Chloride 112.4 H (98-107) mmol/L Carbon Dioxide 25 (22-30) mmol/L BUN 28 H (7-17) mg/dL Creatinine 1.1 (0.7-1.2) mg/dL Glucose 132 H (65-100) mg/dL Calcium 7.8 L (8.4-10.2) mg/dL - Imaging and Cardiology Echo: pending EKG: report reviewed, image reviewed EKG interpretations - Telemetry EKG Rhythm: Atrial Fibrillation - EKG Supraventricular dysrhythmia: atrial fibrillation Assessment and Plan Agree with IV amio. Obtain echo, thyroid profile and serum Mg. No systemic AC given rectal bleeding and severe anemia and AMS. Per GI team, pt s/p attempted colonoscopy that revealed a fecal impaction with brown stool, no evidence of fresh or old blood, abd CT on 09/30 negative for acute findings, etiology unclear- no clinical evidence of GI bleeding, hematology eval recommended. The patient has been seen in conjunction with Dr. Hensley who agrees with the assessment and plan of care. - Patient Problems (1) Atrial fibrillation with RVR Current Visit: Yes Status: Acute (2) Symptomatic anemia Current Visit: Yes Status: Acute (3) GI bleed Current Visit: Yes Status: Acute Qualifiers: GI bleed type/associated pathology: anorectal hemorrhage Qualified Code(s): K62.5 - Hemorrhage of anus and rectum (4) ARF (acute renal failure) Current Visit: Yes Status: Acute Qualifiers: Acute renal failure type: with acute tubular necrosis Qualified Code(s): N17.0 - Acute kidney failure with tubular necrosis (5) Sepsis Current Visit: Yes Status: Suspected Qualifiers: Sepsis type: sepsis due to unspecified organism Qualified Code(s): A41.9 - Sepsis, unspecified organism (6) Dementia Current Visit: Yes Status: Chronic
[2018-10-03] MEDS: KCL 10MEQ/100ML 10 MEQ/100 ML BAG IV SCH ×3 (18:18→20:50)
[2018-10-03] MEDS: GOLYTELY PO ONE (21:14)
--- NOTE | 2018-10-03 23:24 | XRay Report ---
FINAL REPORT PROCEDURE: XR ABDOMEN 1V AP TECHNIQUE: Abdominal radiograph, single supine AP view. HISTORY: NG tube insertion - to confirm placement COMPARISON: No prior studies are available for comparison. FINDINGS: Bowel gas pattern:Nonobstructive. Masses or calcifications:None. Bony structures:No significant abnormality. Other:Nasogastric tube is terminating in the stomach. Multiple surgical clips are identified in the right upper quadrant IMPRESSION: NG tube is terminating in the stomach Nonspecific intestinal gas pattern
[2018-10-04] MEDS: GOLYTELY PO ONE (02:13)
[2018-10-04] MEDS: FLAGYL 500 MG/100 ML 500 MG/100 ML BAG IV SCH ×3 (05:17→23:37)
[2018-10-04 05:40] LABS: Hematocrit 24.7 % (30.3-42.9); Hemoglobin 8.1 gm/dl (10.1-14.3); Mean Corpuscular HGB Conc 33 % (30-34); Mean Corpuscular Volume 79 fl (79-97); Platelet Count 199 K/mm3 (140-440); Red Blood Count 3.13 M/mm3 (3.65-5.03); Red Cell Distribution Width 16.5 % (13.2-15.2)
[2018-10-04 06:00] LABS: Albumin 2.2 g/dL (3.9-5); Calcium 8.1 mg/dL (8.4-10.2)
[2018-10-04 06:56] LABS: Basophils % (Manual) 0 % (0.0-1.8); Eosinophils % (Manual) 0 % (0.0-4.3); Total Cells Counted 100
[2018-10-04 06:57] LABS: Anisocytosis 1+; Poikilocytosis 1+
[2018-10-04 06:58] LABS: Burr Cells Few; Ovalocytes Few; Platelet Estimate Cons
[2018-10-04] MEDS ORDERED: MAGNESIUM SULFATE IV ONE (07:44)
[2018-10-04] MEDS ORDERED: K-DUR PO NR (07:46)
[2018-10-04] MEDS ORDERED: MAGNESIUM SULFATE 1 GM in NACL 0.9% 50 ML IV NR (09:30)
--- NOTE | 2018-10-04 09:37 | Progress Note ---
Addendum entered and electronically signed by LAURIE AVILA MD 10/04/18 10:38: Patient is in SR. Hypokalemia - being corrected.H and H improved after PRBCs transfusions. F/U Echo (pending). Original Note: Assessment and Plan Pt has converted to NSR. Initiate PO amio and d/c amio gtt following 2nd PO dose. Await echo. Replete K+ and Mg. No systemic AC given brief duration of AFib, rectal bleeding, severe anemia and AMS. Per GI team, pt s/p attempted colonoscopy that revealed a fecal impaction with brown stool, no evidence of fresh or old blood, abd CT on 09/30 negative for acute findings, etiology unclear- no clinical evidence of GI bleeding, hematology eval recommended. The patient has been seen in conjunction with Dr. Hensley who agrees with the assessment and plan of care. - Patient Problems (1) Atrial fibrillation with RVR Current Visit: Yes Status: Acute (2) Symptomatic anemia Current Visit: Yes Status: Acute (3) GI bleed Current Visit: Yes Status: Acute Qualifiers: GI bleed type/associated pathology: anorectal hemorrhage Qualified Code(s): K62.5 - Hemorrhage of anus and rectum (4) ARF (acute renal failure) Current Visit: Yes Status: Acute Qualifiers: Acute renal failure type: with acute tubular necrosis Qualified Code(s): N17.0 - Acute kidney failure with tubular necrosis (5) Sepsis Current Visit: Yes Status: Suspected Qualifiers: Sepsis type: sepsis due to unspecified organism Qualified Code(s): A41.9 - Sepsis, unspecified organism (6) Hypokalemia Current Visit: Yes Status: Acute (7) Dementia Current Visit: Yes Status: Chronic Subjective Date of service: 10/04/18 Principal diagnosis: rectal bleeding Interval history: pt resting in bed, remains lethargic, no apparent distress. amio gtt infusing. pt currently in SR, HR 70s. Objective Last Vital Signs Temp 98.5 F 10/04/18 04:00 Pulse 96 H 10/04/18 06:10 Resp 15 10/04/18 06:10 BP 101/57 10/04/18 06:10 Pulse Ox 97 10/04/18 08:07 - Physical Examination General: Other (lethargic, no apparent distress) HEENT: Positive: PERRL Cardiac: Positive: Reg Rate and Rhythm, S1/S2 Lungs: Positive: Decreased Breath Sounds Neuro: Positive: Other (LATASHA) Skin: Negative: Wound Extremities: Absent: edema - Labs and Meds Cardiac Enzymes 10/04/18 Range/Units 04:25 AST 35 (5-40) units/L CBC 10/03/18 10/04/18 Range/Units 08:45 04:25 WBC 22.9 H (4.5-11.0) K/mm3 RBC 3.13 L (3.65-5.03) M/mm3 Hgb 5.5 L* 8.1 L (10.1-14.3) gm/dl Hct 17.0 L* 24.7 L D (30.3-42.9) % Plt Count 199 (140-440) K/mm3 Comprehensive Metabolic Panel 10/04/18 Range/Units 04:25 Sodium 150 H (137-145) mmol/L Potassium 3.0 L (3.6-5.0) mmol/L Chloride 107.7 H (98-107) mmol/L Carbon Dioxide 21 L (22-30) mmol/L BUN 25 H (7-17) mg/dL Creatinine 1.3 H (0.7-1.2) mg/dL Glucose 185 H (65-100) mg/dL Calcium 8.1 L (8.4-10.2) mg/dL AST 35 (5-40) units/L ALT 9 (7-56) units/L Alkaline Phosphatase 78 (35-129) units/L Total Protein 5.8 L D (6.3-8.2) g/dL Albumin 2.2 L (3.9-5) g/dL - Imaging and Cardiology EKG: report reviewed, image reviewed Echo: pending - Telemetry EKG Rhythm: Sinus Rhythm
[2018-10-04] MEDS ORDERED: POTASSIUM CHLORIDE PO ONE (10:00)
--- NOTE | 2018-10-04 10:08 | Gastroenterology Progress Note ---
<TAM HERNANDEZ - Last Filed: 10/04/18 10:32> Assessment and Plan 1.rectal bleeding 2.anemia (unknown baseline) -iron 14, TIBC 101, ferritin 1644 -haptoglobin pending -H/H 8.1/24.7-rise s/p transfuse of PRBCs yesterday -continue to monitor H/H and transfuse as needed -s/p attempted colonoscopy that revealed a fecal impaction with brown stool (visualized mucosa normal appearing; no evidence of fresh or old blood) -abd CT on 09/30 negative for acute findings -etiology unclear- no evidence of rubio GI bleed -fecal impaction- disimpacted yesterday (~5 brown stool balls). Currently receiving golytely with multiple BMs this am per nursing with liquid non-bloody stool. Rectal today with removal of 1 brown stool ball with noted liquid brown/greenish stool. -start on daily bowel regimen with Miralax tomorrow -recommend hematology consult -consider further endoscopic evaluation of anemia based on clinical course/plan of care (converted out of A-fib to NSR with amio overnight-cardiology following) -okay to start on diet/feedings -continue PPI and supportive care -further recommendations to follow Subjective Date of service: 10/04/18 Principal diagnosis: rectal bleeding Interval history: Patient is currently receiving golytely with multiple liquid non-bloody BMs this am per nursing. No signs of active bleeding overnight. Objective - Constitutional Vitals: Temp Pulse Resp BP Pulse Ox 98.5 F 96 H 15 101/57 97 10/04/18 04:00 10/04/18 06:10 10/04/18 06:10 10/04/18 06:10 10/04/18 08:07 General appearance: no acute distress, other (noncommunicative) - Respiratory Respiratory: bilateral: diminished - Cardiovascular Rhythm: regular - Gastrointestinal General gastrointestinal: Present: soft, non-distended, normal bowel sounds Rectal Exam: other (noted liquid brown/green stool with removal of 1 brown stool ball (tune up mechanic present during exam-Philly RICHARD)) - Labs CBC & Chem 7: 10/04/18 04:25 10/04/18 04:25 Labs: Laboratory Results - last 24 hr 09/30/18 10/03/18 10/03/18 12:43 06:04 21:09 WBC RBC Hgb Hct MCV MCH MCHC RDW Plt Count Add Manual Diff Total Counted Seg Neuts % (Manual) Band Neutrophils % Lymphocytes % (Manual) Reactive Lymphs % (Man) Monocytes % (Manual) Eosinophils % (Manual) Basophils % (Manual) Metamyelocytes % Myelocytes % Promyelocytes % Blast Cells % Nucleated RBC % Seg Neutrophils # Man Band Neutrophils # Lymphocytes # (Manual) Abs React Lymphs (Man) Monocytes # (Manual) Eosinophils # (Manual) Basophils # (Manual) Metamyelocytes # Myelocytes # Promyelocytes # Blast Cells # WBC Morphology Hypersegmented Neuts Hyposegmented Neuts Hypogranular Neuts Smudge Cells Toxic Granulation Toxic Vacuolation Dohle Bodies Pelger-Huet Anomaly Hao Rods Platelet Estimate Clumped Platelets Plt Clumps, EDTA Large Platelets Giant Platelets Platelet Satelliting Plt Morphology Comment RBC Morphology Dimorphic RBCs Polychromasia Hypochromasia Poikilocytosis Anisocytosis Microcytosis Macrocytosis Spherocytes Pappenheimer Bodies Sickle Cells Target Cells Tear Drop Cells Ovalocytes Helmet Cells [place]-Wallis Bodies [place] Rings Rogerio Cells Bite Cells Crenated Cell Elliptocytes Acanthocytes (Spur) Rouleaux Hemoglobin C Crystals Schistocytes Malaria parasites Denis Bodies Hem Pathologist Commnt Sodium Potassium Chloride Carbon Dioxide Anion Gap BUN Creatinine Estimated GFR BUN/Creatinine Ratio Glucose Calcium Magnesium Iron 14 L TIBC 101 L Ferritin 1644.0 H Total Bilirubin AST ALT Alkaline Phosphatase Total Protein Albumin Albumin/Globulin Ratio TSH Free T4 Blood Type AB POSITIVE Antibody Screen Negative Crossmatch See Detail 10/03/18 10/03/18 10/03/18 21:09 21:09 21:09 WBC RBC Hgb Hct MCV MCH MCHC RDW Plt Count Add Manual Diff Total Counted Seg Neuts % (Manual) Band Neutrophils % Lymphocytes % (Manual) Reactive Lymphs % (Man) Monocytes % (Manual) Eosinophils % (Manual) Basophils % (Manual) Metamyelocytes % Myelocytes % Promyelocytes % Blast Cells % Nucleated RBC % Seg Neutrophils # Man Band Neutrophils # Lymphocytes # (Manual) Abs React Lymphs (Man) Monocytes # (Manual) Eosinophils # (Manual) Basophils # (Manual) Metamyelocytes # Myelocytes # Promyelocytes # Blast Cells # WBC Morphology Hypersegmented Neuts Hyposegmented Neuts Hypogranular Neuts Smudge Cells Toxic Granulation Toxic Vacuolation Dohle Bodies Pelger-Huet Anomaly Hao Rods Platelet Estimate Clumped Platelets Plt Clumps, EDTA Large Platelets Giant Platelets Platelet Satelliting Plt Morphology Comment RBC Morphology Dimorphic RBCs Polychromasia Hypochromasia Poikilocytosis Anisocytosis Microcytosis Macrocytosis Spherocytes Pappenheimer Bodies Sickle Cells Target Cells Tear Drop Cells Ovalocytes Helmet Cells [place]is Bodies [place] Rings [place] Cells Bite Cells Crenated Cell Elliptocytes Acanthocytes (Spur) Rouleaux Hemoglobin C Crystals Schistocytes Malaria parasites Denis Bodies Hem Pathologist Commnt Sodium Potassium Chloride Carbon Dioxide Anion Gap BUN Creatinine Estimated GFR BUN/Creatinine Ratio Glucose Calcium Magnesium 1.70 Iron TIBC Ferritin Total Bilirubin AST ALT Alkaline Phosphatase Total Protein Albumin Albumin/Globulin Ratio TSH 0.595 Free T4 1.52 H Blood Type Antibody Screen Crossmatch 10/03/18 10/04/18 10/04/18 21:09 04:25 04:25 WBC 22.9 H RBC 3.13 L Hgb 8.1 L Hct 24.7 L D MCV 79 MCH 26 L MCHC 33 RDW 16.5 H Plt Count 199 Add Manual Diff Complete Total Counted 100 Seg Neuts % (Manual) 96.0 H Band Neutrophils % 0 Lymphocytes % (Manual) 3.0 L Reactive Lymphs % (Man) 0 Monocytes % (Manual) 1.0 Eosinophils % (Manual) 0 Basophils % (Manual) 0 Metamyelocytes % 0 Myelocytes % 0 Promyelocytes % 0 Blast Cells % 0 Nucleated RBC % Not Reportable Seg Neutrophils # Man 22.0 H Band Neutrophils # 0.0 Lymphocytes # (Manual) 0.7 L Abs React Lymphs (Man) 0.0 Monocytes # (Manual) 0.2 Eosinophils # (Manual) 0.0 Basophils # (Manual) 0.0 Metamyelocytes # 0.0 Myelocytes # 0.0 Promyelocytes # 0.0 Blast Cells # 0.0 WBC Morphology Not Reportable Hypersegmented Neuts Not Reportable Hyposegmented Neuts Not Reportable Hypogranular Neuts Not Reportable Smudge Cells Not Reportable Toxic Granulation Not Reportable Toxic Vacuolation Not Reportable Dohle Bodies Not Reportable Pelger-Huet Anomaly Not Reportable Hao Rods Not Reportable Platelet Estimate Cons Clumped Platelets Not Reportable Plt Clumps, EDTA Not Reportable Large Platelets Not Reportable Giant Platelets Not Reportable Platelet Satelliting Not Reportable Plt Morphology Comment Not Reportable RBC Morphology Not Reportable Dimorphic RBCs Not Reportable Polychromasia Not Reportable Hypochromasia Not Reportable Poikilocytosis 1+ Anisocytosis 1+ Microcytosis Not Reportable Macrocytosis Not Reportable Spherocytes Not Reportable Pappenheimer Bodies Not Reportable Sickle Cells Not Reportable Target Cells Not Reportable Tear Drop Cells Not Reportable Ovalocytes Few Helmet Cells Not Reportable [place] Bodies Not Reportable [place] Rings Not Reportable [place] Cells Few Bite Cells Not Reportable Crenated Cell Not Reportable Elliptocytes Not Reportable Acanthocytes (Spur) Few Rouleaux Not Reportable Hemoglobin C Crystals Not Reportable Schistocytes Not Reportable Malaria parasites Not Reportable Denis Bodies Not Reportable Hem Pathologist Commnt No Sodium 150 H Potassium 3.0 L Chloride 107.7 H Carbon Dioxide 21 L Anion Gap 24 BUN 25 H Creatinine 1.3 H Estimated GFR 48 BUN/Creatinine Ratio 19 Glucose 185 H Calcium 8.1 L Magnesium Iron TIBC Ferritin Total Bilirubin 0.50 AST 35 ALT 9 Alkaline Phosphatase 78 Total Protein 5.8 L D Albumin 2.2 L Albumin/Globulin Ratio 0.6 TSH Free T4 Blood Type AB POSITIVE Antibody Screen Negative Crossmatch See Detail <BERNIE SANTOS R - Last Filed: 10/04/18 15:09> Assessment and Plan Pt's niece in room. Pt has routine f/u at [facility] usually, and apparently was well until hemorrhagic CVA or hematoma approx 1 month ago. Currently, from GI standpoint, no evidence of bleeding. If H/H stable, no inpatient GI evaluation planned, as duration/chronicity of anemia is unknown, and pt can f/u with PCP as outpatient. If evidence of GI process or bleed, then can do inpatient evaluation. Would recommend continuing chronic PPI on a daily basis. Discussed with Dr. Vance. Objective - Constitutional Vitals: Temp Pulse Resp BP Pulse Ox 98.5 F 96 H 15 101/57 97 10/04/18 04:00 10/04/18 06:10 10/04/18 06:10 10/04/18 06:10 10/04/18 08:07 - Labs CBC & Chem 7: 10/04/18 04:25 10/04/18 04:25 Labs: Laboratory Results - last 24 hr 09/30/18 10/03/18 10/03/18 12:43 21:09 21:09 WBC RBC Hgb Hct MCV MCH MCHC RDW Plt Count Add Manual Diff Total Counted Seg Neuts % (Manual) Band Neutrophils % Lymphocytes % (Manual) Reactive Lymphs % (Man) Monocytes % (Manual) Eosinophils % (Manual) Basophils % (Manual) Metamyelocytes % Myelocytes % Promyelocytes % Blast Cells % Nucleated RBC % Seg Neutrophils # Man Band Neutrophils # Lymphocytes # (Manual) Abs React Lymphs (Man) Monocytes # (Manual) Eosinophils # (Manual) Basophils # (Manual) Metamyelocytes # Myelocytes # Promyelocytes # Blast Cells # WBC Morphology Hypersegmented Neuts Hyposegmented Neuts Hypogranular Neuts Smudge Cells Toxic Granulation Toxic Vacuolation Dohle Bodies Pelger-Huet Anomaly Hao Rods Platelet Estimate Clumped Platelets Plt Clumps, EDTA Large Platelets Giant Platelets Platelet Satelliting Plt Morphology Comment RBC Morphology Dimorphic RBCs Polychromasia Hypochromasia Poikilocytosis Anisocytosis Microcytosis Macrocytosis Spherocytes Pappenheimer Bodies Sickle Cells Target Cells Tear Drop Cells Ovalocytes Helmet Cells [place] Bodies [place] Rings Rogerio Cells Bite Cells Crenated Cell Elliptocytes Acanthocytes (Spur) Rouleaux Hemoglobin C Crystals Schistocytes Malaria parasites Denis Bodies Hem Pathologist Commnt Sodium Potassium Chloride Carbon Dioxide Anion Gap BUN Creatinine Estimated GFR BUN/Creatinine Ratio Glucose Calcium Magnesium 1.70 Ferritin 1644.0 H Total Bilirubin AST ALT Alkaline Phosphatase Total Protein Albumin Albumin/Globulin Ratio TSH Free T4 Blood Type Antibody Screen Crossmatch See Detail 10/03/18 10/03/18 10/03/18 21:09 21:09 21:09 WBC RBC Hgb Hct MCV MCH MCHC RDW Plt Count Add Manual Diff Total Counted Seg Neuts % (Manual) Band Neutrophils % Lymphocytes % (Manual) Reactive Lymphs % (Man) Monocytes % (Manual) Eosinophils % (Manual) Basophils % (Manual) Metamyelocytes % Myelocytes % Promyelocytes % Blast Cells % Nucleated RBC % Seg Neutrophils # Man Band Neutrophils # Lymphocytes # (Manual) Abs React Lymphs (Man) Monocytes # (Manual) Eosinophils # (Manual) Basophils # (Manual) Metamyelocytes # Myelocytes # Promyelocytes # Blast Cells # WBC Morphology Hypersegmented Neuts Hyposegmented Neuts Hypogranular Neuts Smudge Cells Toxic Granulation Toxic Vacuolation Dohle Bodies Pelger-Huet Anomaly Hao Rods Platelet Estimate Clumped Platelets Plt Clumps, EDTA Large Platelets Giant Platelets Platelet Satelliting Plt Morphology Comment RBC Morphology Dimorphic RBCs Polychromasia Hypochromasia Poikilocytosis Anisocytosis Microcytosis Macrocytosis Spherocytes Pappenheimer Bodies Sickle Cells Target Cells Tear Drop Cells Ovalocytes Helmet Cells [place] Bodies [place] Rings Rogerio Cells Bite Cells Crenated Cell Elliptocytes Acanthocytes (Spur) Rouleaux Hemoglobin C Crystals Schistocytes Malaria parasites Denis Bodies Hem Pathologist Commnt Sodium Potassium Chloride Carbon Dioxide Anion Gap BUN Creatinine Estimated GFR BUN/Creatinine Ratio Glucose Calcium Magnesium Ferritin Total Bilirubin AST ALT Alkaline Phosphatase Total Protein Albumin Albumin/Globulin Ratio TSH 0.595 Free T4 1.52 H Blood Type AB POSITIVE Antibody Screen Negative Crossmatch See Detail 10/04/18 10/04/18 04:25 04:25 WBC 22.9 H RBC 3.13 L Hgb 8.1 L Hct 24.7 L D MCV 79 MCH 26 L MCHC 33 RDW 16.5 H Plt Count 199 Add Manual Diff Complete Total Counted 100 Seg Neuts % (Manual) 96.0 H Band Neutrophils % 0 Lymphocytes % (Manual) 3.0 L Reactive Lymphs % (Man) 0 Monocytes % (Manual) 1.0 Eosinophils % (Manual) 0 Basophils % (Manual) 0 Metamyelocytes % 0 Myelocytes % 0 Promyelocytes % 0 Blast Cells % 0 Nucleated RBC % Not Reportable Seg Neutrophils # Man 22.0 H Band Neutrophils # 0.0 Lymphocytes # (Manual) 0.7 L Abs React Lymphs (Man) 0.0 Monocytes # (Manual) 0.2 Eosinophils # (Manual) 0.0 Basophils # (Manual) 0.0 Metamyelocytes # 0.0 Myelocytes # 0.0 Promyelocytes # 0.0 Blast Cells # 0.0 WBC Morphology Not Reportable Hypersegmented Neuts Not Reportable Hyposegmented Neuts Not Reportable Hypogranular Neuts Not Reportable Smudge Cells Not Reportable Toxic Granulation Not Reportable Toxic Vacuolation Not Reportable Dohle Bodies Not Reportable Pelger-Huet Anomaly Not Reportable Hao Rods Not Reportable Platelet Estimate Cons Clumped Platelets Not Reportable Plt Clumps, EDTA Not Reportable Large Platelets Not Reportable Giant Platelets Not Reportable Platelet Satelliting Not Reportable Plt Morphology Comment Not Reportable RBC Morphology Not Reportable Dimorphic RBCs Not Reportable Polychromasia Not Reportable Hypochromasia Not Reportable Poikilocytosis 1+ Anisocytosis 1+ Microcytosis Not Reportable Macrocytosis Not Reportable Spherocytes Not Reportable Pappenheimer Bodies Not Reportable Sickle Cells Not Reportable Target Cells Not Reportable Tear Drop Cells Not Reportable Ovalocytes Few Helmet Cells Not Reportable Titus-Wallis Bodies Not Reportable [place] Rings Not Reportable Rogerio Cells Few Bite Cells Not Reportable Crenated Cell Not Reportable Elliptocytes Not Reportable Acanthocytes (Spur) Few Rouleaux Not Reportable Hemoglobin C Crystals Not Reportable Schistocytes Not Reportable Malaria parasites Not Reportable Denis Bodies Not Reportable Hem Pathologist Commnt No Sodium 150 H Potassium 3.0 L Chloride 107.7 H Carbon Dioxide 21 L Anion Gap 24 BUN 25 H Creatinine 1.3 H Estimated GFR 48 BUN/Creatinine Ratio 19 Glucose 185 H Calcium 8.1 L Magnesium Ferritin Total Bilirubin 0.50 AST 35 ALT 9 Alkaline Phosphatase 78 Total Protein 5.8 L D Albumin 2.2 L Albumin/Globulin Ratio 0.6 TSH Free T4 Blood Type Antibody Screen Crossmatch
[2018-10-04] MEDS: MAXIPIME/NS 2 GM/100 ML 2 GM/100 ML BAG IV SCH (10:58)
[2018-10-04] MEDS: PROTONIX IV SCH ×2 (10:58→23:38)
[2018-10-04] MEDS: SODIUM CHLORIDE FLUSH SYRINGE 10 ML IV SCH ×2 (11:04→23:38)
[2018-10-04] MEDS: CORDARONE PO SCH ×2 (11:05→23:38)
[2018-10-04] MEDS ORDERED: PANCREAZE DR 10,500 UNIT FEEDTUBE PRN ×2 (11:47→13:51)
[2018-10-04] MEDS ORDERED: SODIUM BICARBONATE FEEDTUBE PRN ×2 (11:47→13:51)
[2018-10-04] MEDS ORDERED: SIMPLE SYRUP FEEDTUBE PRN ×4 (11:47→13:51)
[2018-10-04] MEDS ORDERED: K-DUR PO ONE (12:00)
--- NOTE | 2018-10-04 15:31 | Progress Note ---
Assessment and Plan / Rectal bleeding; no episodes since admission GI evaluation noted and appreciated s/p attempted colonoscopy on 10/02/18 that revealed a fecal impaction with brown stool (visualized mucosa normal appearin; no evidence of fresh or old blood) -abd CT on 09/30 negative for acute findings /Stool impaction, cont golytely / Anemia secondary to rectal bleeding ?, Hb dropped upto 5.5 s/p 2 units of blood transfusion, Hb improved to 8.1 closely monitor; normal LFT, pending haptoglobin /New onset atrial fib - placed on amioderone drip, no AC as pt with severe anemia, consulted cardiology, follow 2d echo result /Acute kidney injury; secondary to vasomotor nephropathy monitor Creatinine, avoid nephrotoxins, gentle hydration /-Hypertension: Moderate control, continue current management /-Hypernatremia; continue hypotonic IV fluids /-Dementia; supportive care / SIRS : by Criteria, empiric antibiotics and follow cultures, supportive care, /-DVTprophylaxis: SCD / DNR CODE STATUS Brief history: 83-year-old female patient from [facility] was admitted through emergency room with rectal bleeding, evaluated by GI, recommend CT abdomen and pelvis with contrast showed no acute process, s/p colonoscopy showed stool impaction. No new episodes of rectal bleeding. started on amioderone drip for atrial fib. Physical exam: General appearance: Present: mild distress, cachectic - EENT Eyes: Present: PERRL, EOM intact - Neck Neck: Present: supple, normal ROM - Respiratory Respiratory effort: normal Respiratory: bilateral: diminished, negative: rales, rhonchi, wheezing - Cardiovascular Rhythm: regular Heart Sounds: Present: S1 & S2 - Extremities Extremities: no ischemia, No edema - Abdominal General gastrointestinal: soft, non-tender, non-distended, normal bowel sounds - Integumentary Integumentary: Present: clear, warm - Psychiatric Psychiatric: other (dementia ) - Neurologic Neurologic: other (noncommunicative) Subjective Date of service: 10/04/18 Principal diagnosis: rectal bleeding Interval history: Patient seen and examined, patient remained altered and unable to provide any history Discussed with family, wished for DNR, NOovert sign of active bleeding No acute issue O/N Objective - Constitutional Vitals: Vital Signs - 12hr 10/04/18 10/04/18 10/04/18 03:40 03:50 04:00 Temperature 98.5 F Pulse Rate 137 H 138 H 138 H Pulse Rate [ 130 H From Monitor] Respiratory 24 24 22 Rate Blood Pressure 135/77 135/77 136/81 O2 Sat by Pulse 100 100 100 Oximetry 10/04/18 10/04/18 10/04/18 04:10 04:20 04:30 Temperature Pulse Rate 138 H 137 H 138 H Pulse Rate [ From Monitor] Respiratory 24 22 22 Rate Blood Pressure 136/81 136/81 131/74 O2 Sat by Pulse 100 100 100 Oximetry 10/04/18 10/04/18 10/04/18 04:40 04:50 05:00 Temperature Pulse Rate 139 H 111 H 109 H Pulse Rate [ From Monitor] Respiratory 20 14 14 Rate Blood Pressure 131/74 131/74 105/60 O2 Sat by Pulse Oximetry 10/04/18 10/04/18 10/04/18 05:10 05:20 05:30 Temperature Pulse Rate 108 H 97 H 95 H Pulse Rate [ From Monitor] Respiratory 14 23 15 Rate Blood Pressure 105/60 105/60 101/57 O2 Sat by Pulse 100 Oximetry 10/04/18 10/04/18 10/04/18 05:40 05:50 06:00 Temperature Pulse Rate 87 107 H 99 H Pulse Rate [ From Monitor] Respiratory 14 23 14 Rate Blood Pressure 101/57 101/57 107/53 O2 Sat by Pulse 55 L Oximetry 10/04/18 10/04/18 06:10 08:07 Temperature Pulse Rate 96 H Pulse Rate [ From Monitor] Respiratory 15 Rate Blood Pressure 101/57 O2 Sat by Pulse 97 Oximetry - Labs CBC & Chem 7: 10/04/18 04:25 10/05/18 04:26 Labs: Abnormal lab results 09/30/18 10/03/18 10/03/18 Range/Units 12:43 21:09 21:09 WBC (4.5-11.0) K/mm3 RBC (3.65-5.03) M/mm3 Hgb (10.1-14.3) gm/dl Hct (30.3-42.9) % MCH (28-32) pg RDW (13.2-15.2) % Seg Neuts % (Manual) (40.0-70.0) % Lymphocytes % (Manual) (13.4-35.0) % Seg Neutrophils # Man (1.8-7.7) K/mm3 Lymphocytes # (Manual) (1.2-5.4) K/mm3 Sodium (137-145) mmol/L Potassium (3.6-5.0) mmol/L Chloride (98-107) mmol/L Carbon Dioxide (22-30) mmol/L BUN (7-17) mg/dL Creatinine (0.7-1.2) mg/dL Glucose (65-100) mg/dL Calcium (8.4-10.2) mg/dL Ferritin 1644.0 H (13.0-400.0) ng/mL Total Protein (6.3-8.2) g/dL Albumin (3.9-5) g/dL Free T4 1.52 H (0.76-1.46) ng/dL Crossmatch See Detail 10/03/18 10/04/18 10/04/18 Range/Units 21:09 04:25 04:25 WBC 22.9 H (4.5-11.0) K/mm3 RBC 3.13 L (3.65-5.03) M/mm3 Hgb 8.1 L (10.1-14.3) gm/dl Hct 24.7 L D (30.3-42.9) % MCH 26 L (28-32) pg RDW 16.5 H (13.2-15.2) % Seg Neuts % (Manual) 96.0 H (40.0-70.0) % Lymphocytes % (Manual) 3.0 L (13.4-35.0) % Seg Neutrophils # Man 22.0 H (1.8-7.7) K/mm3 Lymphocytes # (Manual) 0.7 L (1.2-5.4) K/mm3 Sodium 150 H (137-145) mmol/L Potassium 3.0 L (3.6-5.0) mmol/L Chloride 107.7 H (98-107) mmol/L Carbon Dioxide 21 L (22-30) mmol/L BUN 25 H (7-17) mg/dL Creatinine 1.3 H (0.7-1.2) mg/dL Glucose 185 H (65-100) mg/dL Calcium 8.1 L (8.4-10.2) mg/dL Ferritin (13.0-400.0) ng/mL Total Protein 5.8 L D (6.3-8.2) g/dL Albumin 2.2 L (3.9-5) g/dL Free T4 (0.76-1.46) ng/dL Crossmatch See Detail
[2018-10-04] MEDS ORDERED: LEVAQUIN 750MG/150ML 750 MG/150 ML BAG IV SCH (17:00)
[2018-10-04] MEDS: D5W/0.45% NACL/KCL 30 MEQ 30 MEQ/1,000 ML BAG IV SCH (17:30)
--- NOTE | 2018-10-04 17:33 | Cat Scan Report ---
FINAL REPORT EXAM: CT HEAD/BRAIN WO CON HISTORY: AMS TECHNIQUE: Standard unenhanced CT of the head at 5.0 millimeter axial increments. PRIORS: None. FINDINGS: There is high density ribbon like material along the sulcal margin of the medial right occipital lobe . This is typical of calcium deposition related to prior trauma or infection in this area. Underlying low-density in the adjacent parenchyma suggests a remote process. Less likely, this could also repre sent an arterial venous malformation. The ventricular system is normal in size and configuration. There is no evidence for parenchymal volu me loss. There is no evidence for mass lesion, mass effect, midline shift, acute intracranial hemorrhage, or a cute ischemia/ infarction. No evidence for acute skull fracture is seen. No abnormality in the overlying scalp soft tissues is seen. Visualized paranasal sinuses are clear. Nasogastric tube is in place within the left nostril but cros ses into the right nasal cavity. IMPRESSION: No acute intracranial process noted. Probable sulcal calcification along the medial margin of the rig ht occipital lobe related to remote trauma or remote infection. Less likely, this could be an arteria l venous malformation
[2018-10-04] MEDS: CORDARONE 900 MG in D5W 482 ML IV SCH (17:52)
[2018-10-05] MEDS: FLAGYL 500 MG/100 ML 500 MG/100 ML BAG IV SCH ×3 (05:27→21:29)
[2018-10-05] MEDS: PROTONIX IV SCH (10:17)
[2018-10-05] MEDS: CORDARONE PO SCH ×2 (10:17→21:29)
[2018-10-05] MEDS: MAXIPIME/NS 2 GM/100 ML 2 GM/100 ML BAG IV SCH (10:18)
[2018-10-05] MEDS: SODIUM CHLORIDE FLUSH SYRINGE 10 ML IV SCH ×2 (10:18→21:29)
--- NOTE | 2018-10-05 11:47 | Progress Note ---
Assessment and Plan Leukocytosis on empiric antibiotics AFiB RVR Severe Anemia CVA/nonverbal/Altered mental status Hypertension Hyperlipidemia History of Colon CA Fecal Impaction Telemetery: AFIB RVR continue PO amio as long as GI says its okay for PO with tubefeeds If becomes NPO recommend IV amio gtt Await echo No systemic anticoagulation given unclear etiololgy severe anemia Subjective Date of service: 10/05/18 Principal diagnosis: GI bleed/ARF Interval history: Pt lying in bed nonverbal. NG tube in place. Objective Vital Signs Temp Pulse Pulse Resp BP Pulse Ox 10/05/18 08:22 100 10/05/18 08:00 98.2 F 96 H 100 H 21 141/98 100 10/05/18 07:30 89 14 101/57 10/05/18 07:00 99 H 21 120/63 99 10/05/18 06:30 92 H 17 136/66 100 10/05/18 06:00 86 14 147/93 99 10/05/18 05:30 100 H 18 147/93 83 L 10/05/18 05:00 104 H 25 H 145/79 10/05/18 04:30 97 H 23 135/70 10/05/18 04:00 98.5 F 99 H 100 H 17 143/45 100 10/05/18 03:30 103 H 17 135/52 100 10/05/18 03:00 94 H 21 127/61 100 10/05/18 02:30 87 15 113/48 10/05/18 02:00 95 H 18 127/54 100 10/05/18 01:30 86 15 127/54 100 10/05/18 01:00 86 19 124/59 100 10/05/18 00:30 84 16 115/54 10/05/18 00:00 97.5 F L 85 90 16 128/54 95 10/04/18 23:30 93 H 18 137/64 100 10/04/18 23:00 85 14 121/56 97 10/04/18 22:30 88 16 130/60 100 10/04/18 22:00 93 H 19 132/66 100 10/04/18 21:30 84 15 123/60 10/04/18 21:00 92 H 20 136/61 100 10/04/18 20:34 100 10/04/18 20:30 134 H 15 116/56 10/04/18 20:00 97.6 F 86 86 18 130/60 99 10/04/18 19:44 83 14 120/75 100 10/04/18 19:30 94 H 16 120/75 10/04/18 19:00 84 14 123/79 10/04/18 18:30 90 22 131/69 10/04/18 18:00 124 H 13 125/59 10/04/18 17:30 85 15 126/55 10/04/18 17:00 107 H 23 118/58 10/04/18 16:30 102 H 26 H 133/59 100 10/04/18 16:00 97.5 F L 96 H 138 H 22 133/59 99 10/04/18 15:30 103 H 34 H 130/75 98 10/04/18 15:00 83 16 114/54 100 10/04/18 14:30 80 14 109/53 10/04/18 14:00 88 21 126/62 100 10/04/18 13:30 98 H 27 H 96/46 100 10/04/18 13:00 81 14 92/50 10/04/18 12:30 82 14 96/46 10/04/18 12:00 99 F 93 H 138 H 17 119/53 100 - Physical Examination General: Other (No apparent distress) HEENT: Positive: PERRL Neck: Positive: neck supple Cardiac: Positive: Irregularly Regular Lungs: Positive: clear to auscultation Neuro: Positive: Other (Nonverbal. Does not respond to commands. Eyes are not tracking) Abdomen: Positive: Soft, Other (Hypoactive) Skin: Negative: Rash, Wound Extremities: Absent: edema - Labs and Meds Comprehensive Metabolic Panel 10/05/18 Range/Units 04:26 Sodium 146 H (137-145) mmol/L Potassium 3.6 (3.6-5.0) mmol/L Chloride 108.2 H (98-107) mmol/L Carbon Dioxide 20 L (22-30) mmol/L BUN 26 H (7-17) mg/dL Creatinine 1.7 H (0.7-1.2) mg/dL Glucose 165 H (65-100) mg/dL Calcium 8.0 L (8.4-10.2) mg/dL - Imaging and Cardiology EKG: report reviewed, image reviewed Echo: pending
[2018-10-05 13:23] LABS: Calcium 7.8 mg/dL (8.4-10.2)
[2018-10-05 15:31] LABS: Hematocrit 25.2 % (30.3-42.9); Hemoglobin 7.9 gm/dl (10.1-14.3); Mean Corpuscular HGB Conc 31 % (30-34); Mean Corpuscular Volume 84 fl (79-97); Platelet Count 100 K/mm3 (140-440); Red Blood Count 3.02 M/mm3 (3.65-5.03); Red Cell Distribution Width 17.4 % (13.2-15.2)
[2018-10-05 17:05] LABS: Basophils % (Manual) 0 % (0.0-1.8); Eosinophils % (Manual) 0 % (0.0-4.3); Monocytes % (Manual) 2.5 % (0.0-7.3); Total Cells Counted 200
[2018-10-05 17:06] LABS: Anisocytosis 1+; Burr Cells 2+; Ovalocytes 1+; Platelet Estimate Consistent w Auto; Poikilocytosis 2+; Schistocytes Few
--- NOTE | 2018-10-05 18:48 | Progress Note ---
Assessment and Plan / Rectal bleeding; no episodes since admission Likely from stool impaction GI evaluation noted and appreciated s/p attempted colonoscopy on 10/02/18 that revealed a fecal impaction with brown stool (visualized mucosa normal appearin; no evidence of fresh or old blood) -abd CT on 09/30 negative for acute findings /Stool impaction, s/p golytely, cont stool softner / Anemia secondary to rectal bleeding ?, Hb dropped upto 5.5 s/p 2 units of blood transfusion, Hb improved to 8.1 closely monitor; normal LFT, pending haptoglobin /New onset atrial fib - placed on amioderone drip and then transitined to po, no AC as pt with severe anemia, consulted cardiology, follow 2d echo result /Acute kidney injury; secondary to vasomotor nephropathy monitor Creatinine, avoid nephrotoxins, gentle hydration /-Hypertension: Moderate control, continue current management /-Hypernatremia; continue hypotonic IV fluids, improving /-Dementia; supportive care / SIRS : by Criteria, empiric antibiotics and follow cultures, supportive care, /-DVTprophylaxis: SCD / DNR CODE STATUS Brief history: 83-year-old female patient from [facility] was admitted through emergency room with rectal bleeding, evaluated by GI, recommend CT abdomen and pelvis with contrast showed no acute process, s/p colonoscopy showed stool impaction. No new episodes of rectal bleeding. started on amioderone drip for atrial fib. Physical exam: General appearance: Present: mild distress, cachectic - EENT Eyes: Present: PERRL, EOM intact - Neck Neck: Present: supple, normal ROM - Respiratory Respiratory effort: normal Respiratory: bilateral: diminished, negative: rales, rhonchi, wheezing - Cardiovascular Rhythm: regular Heart Sounds: Present: S1 & S2 - Extremities Extremities: no ischemia, No edema - Abdominal General gastrointestinal: soft, non-tender, non-distended, normal bowel sounds - Integumentary Integumentary: Present: clear, warm - Psychiatric Psychiatric: other (dementia ) - Neurologic Neurologic: other (noncommunicative) Subjective Date of service: 10/05/18 Principal diagnosis: rectal bleeding Interval history: Patient seen and examined, patient remained altered and unable to provide any history Discussed with family, NO overt sign of active bleeding No acute issue O/N Objective - Constitutional Vitals: Vital Signs - 12hr 10/05/18 10/05/18 10/05/18 07:00 07:30 08:00 Temperature 98.2 F Pulse Rate 99 H 89 96 H Pulse Rate [ 100 H From Monitor] Respiratory 21 14 21 Rate Blood Pressure 120/63 101/57 141/98 O2 Sat by Pulse 99 100 Oximetry 10/05/18 10/05/18 10/05/18 08:22 08:30 09:00 Temperature Pulse Rate 90 106 H Pulse Rate [ From Monitor] Respiratory 21 22 Rate Blood Pressure 101/51 148/75 O2 Sat by Pulse 100 92 100 Oximetry 10/05/18 10/05/18 10/05/18 09:30 10:00 10:30 Temperature Pulse Rate 86 88 92 H Pulse Rate [ From Monitor] Respiratory 17 13 14 Rate Blood Pressure 100/48 124/55 129/48 O2 Sat by Pulse 92 94 Oximetry 10/05/18 10/05/18 10/05/18 11:00 11:30 12:00 Temperature 98.2 F Pulse Rate 97 H 97 H 97 H Pulse Rate [ 100 H From Monitor] Respiratory 14 21 19 Rate Blood Pressure 125/58 127/63 133/60 O2 Sat by Pulse 99 Oximetry 10/05/18 10/05/18 10/05/18 12:30 13:00 13:30 Temperature Pulse Rate 96 H 95 H 100 H Pulse Rate [ From Monitor] Respiratory 19 18 19 Rate Blood Pressure 138/68 131/61 133/59 O2 Sat by Pulse Oximetry 10/05/18 10/05/18 10/05/18 14:00 14:30 15:00 Temperature Pulse Rate 95 H 100 H 98 H Pulse Rate [ From Monitor] Respiratory 15 22 18 Rate Blood Pressure 136/60 136/60 140/70 O2 Sat by Pulse Oximetry 10/05/18 10/05/18 10/05/18 15:30 16:00 16:30 Temperature 97.2 F L Pulse Rate 94 H 94 H 100 H Pulse Rate [ 100 H From Monitor] Respiratory 14 17 20 Rate Blood Pressure 128/57 124/64 124/64 O2 Sat by Pulse 99 Oximetry 10/05/18 10/05/18 10/05/18 17:00 17:30 18:00 Temperature Pulse Rate 99 H 91 H 106 H Pulse Rate [ From Monitor] Respiratory 18 15 22 Rate Blood Pressure 132/65 125/68 149/65 O2 Sat by Pulse Oximetry - Labs CBC & Chem 7: 10/06/18 08:24 10/06/18 08:24 Labs: Abnormal lab results 10/05/18 10/05/18 10/05/18 Range/Units 04:26 12:20 14:37 WBC 31.4 H (4.5-11.0) K/mm3 RBC 3.02 L (3.65-5.03) M/mm3 Hgb 7.9 L (10.1-14.3) gm/dl Hct 25.2 L (30.3-42.9) % MCH 26 L (28-32) pg RDW 17.4 H (13.2-15.2) % Plt Count 100 L (140-440) K/mm3 Seg Neuts % (Manual) 94.0 H (40.0-70.0) % Lymphocytes % (Manual) 3.5 L (13.4-35.0) % Seg Neutrophils # Man 29.5 H (1.8-7.7) K/mm3 Lymphocytes # (Manual) 1.1 L (1.2-5.4) K/mm3 Sodium 146 H (137-145) mmol/L Chloride 108.2 H 107.5 H (98-107) mmol/L Carbon Dioxide 20 L 14 L (22-30) mmol/L BUN 26 H 29 H (7-17) mg/dL Creatinine 1.7 H 1.6 H (0.7-1.2) mg/dL Glucose 165 H 157 H (65-100) mg/dL Calcium 8.0 L 7.8 L (8.4-10.2) mg/dL
--- NOTE | 2018-10-05 19:18 | Gastroenterology Progress Note ---
Assessment and Plan - Patient Problems (1) Rectal bleed Current Visit: Yes Status: Acute Plan to address problem: - Likely from recent fecal impaction. - Continue miralax QD. - Patient currently tolerating tube feeds and hct stable. - Endoscopy as required, but given comorbids, will avoid unless clinically indicated. (2) Fecal impaction in rectum Current Visit: Yes Status: Acute Plan to address problem: - Resolved after endoscopy and lavage. - Continue daily miralax. Subjective Date of service: 10/05/18 Principal diagnosis: Rectal Bleed/Impaction Interval history: The patient has been stable without fevers today; tolerating tube feeds. No blood in stool x 1, and hct stable. Objective - Constitutional Vitals: Temp Pulse Resp BP Pulse Ox 97.2 F L 106 H 22 149/65 99 10/05/18 16:00 10/05/18 18:00 10/05/18 18:00 10/05/18 18:00 10/05/18 16:00 General appearance: no acute distress - Respiratory Respiratory effort: normal Respiratory: bilateral: CTA - Cardiovascular Rhythm: regular Heart Sounds: Present: S1 & S2 - Gastrointestinal General gastrointestinal: Present: soft, non-tender, non-distended - Labs CBC & Chem 7: 10/05/18 14:37 10/05/18 12:20 Labs: Laboratory Results - last 24 hr 10/05/18 10/05/18 10/05/18 04:26 12:20 14:37 WBC 31.4 H RBC 3.02 L Hgb 7.9 L Hct 25.2 L MCV 84 MCH 26 L MCHC 31 RDW 17.4 H Plt Count 100 L Lymph % (Auto) Advertising Statistical Clerk Divide % (Auto) Advertising Statistical Clerk Eos % (Auto) Advertising Statistical Clerk Baso % (Auto) Advertising Statistical Clerk Lymph # Advertising Statistical Clerk Divide # Advertising Statistical Clerk Eos # Advertising Statistical Clerk Baso # Advertising Statistical Clerk Add Manual Diff Complete Total Counted 200 Seg Neutrophils % Advertising Statistical Clerk Seg Neuts % (Manual) 94.0 H Band Neutrophils % 0 Lymphocytes % (Manual) 3.5 L Reactive Lymphs % (Man) 0 Monocytes % (Manual) 2.5 Eosinophils % (Manual) 0 Basophils % (Manual) 0 Metamyelocytes % 0 Myelocytes % 0 Promyelocytes % 0 Blast Cells % 0 Nucleated RBC % Not Reportable Seg Neutrophils # Advertising Statistical Clerk Seg Neutrophils # Man 29.5 H Band Neutrophils # 0.0 Lymphocytes # (Manual) 1.1 L Abs React Lymphs (Man) 0.0 Monocytes # (Manual) 0.8 Eosinophils # (Manual) 0.0 Basophils # (Manual) 0.0 Metamyelocytes # 0.0 Myelocytes # 0.0 Promyelocytes # 0.0 Blast Cells # 0.0 WBC Morphology Not Reportable Hypersegmented Neuts Not Reportable Hyposegmented Neuts Not Reportable Hypogranular Neuts Not Reportable Smudge Cells Not Reportable Toxic Granulation Not Reportable Toxic Vacuolation Not Reportable Dohle Bodies Not Reportable Pelger-Huet Anomaly Not Reportable Hao Rods Not Reportable Platelet Estimate Consistent w auto Clumped Platelets Not Reportable Plt Clumps, EDTA Not Reportable Large Platelets Not Reportable Giant Platelets Not Reportable Platelet Satelliting Not Reportable Plt Morphology Comment Not Reportable RBC Morphology Not Reportable Dimorphic RBCs Not Reportable Polychromasia Not Reportable Hypochromasia Not Reportable Poikilocytosis 2+ Anisocytosis 1+ Microcytosis Not Reportable Macrocytosis Not Reportable Spherocytes Not Reportable Pappenheimer Bodies Not Reportable Sickle Cells Not Reportable Target Cells Not Reportable Tear Drop Cells Not Reportable Ovalocytes 1+ Helmet Cells Not Reportable [place] Bodies Not Reportable [place] Rings Not Reportable [place] Cells 2+ Bite Cells Not Reportable Crenated Cell Not Reportable Elliptocytes Not Reportable Acanthocytes (Spur) Not Reportable Rouleaux Not Reportable Hemoglobin C Crystals Not Reportable Schistocytes Few Malaria parasites Not Reportable Denis Bodies Not Reportable Hem Pathologist Commnt No Sodium 146 H 142 Potassium 3.6 3.8 Chloride 108.2 H 107.5 H Carbon Dioxide 20 L 14 L Anion Gap 21 24 BUN 26 H 29 H Creatinine 1.7 H 1.6 H Estimated GFR 35 37 BUN/Creatinine Ratio 15 18 Glucose 165 H 157 H Calcium 8.0 L 7.8 L Magnesium 1.80
[2018-10-05] MEDS: D5W/0.45% NACL/KCL 30 MEQ 30 MEQ/1,000 ML BAG IV SCH (21:25)
[2018-10-06] MEDS: FLAGYL 500 MG/100 ML 500 MG/100 ML BAG IV SCH (05:51)
[2018-10-06 07:30] VITALS: BP 150/79
[2018-10-06 08:52] LABS: Hematocrit 20.7 % (30.3-42.9); Hemoglobin 6.6 gm/dl (10.1-14.3); Mean Corpuscular HGB Conc 32 % (30-34); Mean Corpuscular Volume 80 fl (79-97)
[2018-10-06 08:53] LABS: Platelet Count 79 K/mm3 (140-440)
[2018-10-06 09:29] LABS: Calcium 7.5 mg/dL (8.4-10.2)
[2018-10-06] MEDS ORDERED: Centrum Liq PO SCH (10:00)
[2018-10-06] MEDS ORDERED: PREVACID SOLUTAB FEEDTUBE SCH (10:00)
[2018-10-06] MEDS ORDERED: MIRALAX 3350 PO SCH (10:00)
[2018-10-06] MEDS: CORDARONE PO SCH (10:45)
[2018-10-06 10:58] LABS: Anisocytosis 1+; Basophils % (Manual) 0 % (0.0-1.8); Burr Cells 1+; Eosinophils % (Manual) 0 % (0.0-4.3); Poikilocytosis 2+; Total Cells Counted 100
[2018-10-06 10:59] LABS: Hypochromasia 1+; Ovalocytes Few; Platelet Estimate Cons; Schistocytes Few
[2018-10-06] MEDS ORDERED: NACL 0.9% 500 ML 500 ML IV ONE (11:01)
[2018-10-06] MEDS: MAXIPIME/NS 2 GM/100 ML 2 GM/100 ML BAG IV SCH (11:20)
[2018-10-06] MEDS: D5W/0.45% NACL/KCL 30 MEQ 30 MEQ/1,000 ML BAG IV SCH (11:21)
[2018-10-06] MEDS ORDERED: MORPHINE IV ONE (12:02)
--- NOTE | 2018-10-06 13:43 | Event Note ---
Date: 10/06/18 Patient became pulseless and noted asystole on monitor around 12:45 pm Family was at bedside, Patient is DNR Pronounced at 12:55 pm
--- NOTE | 2018-10-06 13:44 | Death Summary ---
Summary - Providers Date of service: 10/06/18 Consults: 10/02/18 12:09 Physical Therapy Evaluation and Treat [CONS] Routine Comment: Reason For Exam: Debility 10/02/18 12:10 Occupational Therapy Evaluate and Treat [CONS] Routine Comment: Reason For Exam: Debility 10/03/18 13:45 Consult to Physician [CONS] Routine Comment: Consulting Provider: LAURIE AVILA Physician Instructions: Reason For Exam: atrial fib 10/04/18 11:47 Consult to Dietitian/Nutrition [CONS] Routine Physician Instructions: Reason For Exam: Reason for Consult: Write/Manage Tube Feeding Consult to Dietitian/Nutrition [CONS] Routine Physician Instructions: Assess nutrtn needs, initiate, modify, manage TF Reason For Exam: Reason for Consult: Write/Manage Tube Feeding Reason for Consult: Write/Manage Tube Feeding 10/06/18 12:04 Consult to Case Management [CONS] Routine Services Needed at Discharge: Other Additional Physician Instructions: Hospice 09/30/18 13:55 Consult to Physician [CONS] Urgent Comment: DR LOPEZ NOTIFIED [id number] Consulting Provider: SYMONE LOPEZ Physician Instructions: Reason For Exam: rectal bleeding Attending: TERESA CORREIA - summary Date of admission: 09/30/18 14:43 Procedures/treatments rendered: Brief history: 83-year-old female patient from [facility] was admitted through emergency room with rectal bleeding, evaluated by GI, recommend CT abdomen and pelvis with contrast showed no acute process, s/p colonoscopy showed stool impaction. She then noted to be in atrial fib, started on amioderone drip for atrial fib. No AC recommended for recent GI bleed. Her h/h dropped again. She noted pulseless and asystole on monitor before even completed repeat blood transfusion. She was Pronounced at 12:55 pm. Family was at bedside. Cause of : Cardiorespiratory arrest due to congestive heart failure, arrythmia, severe anemia, and renal failure. Diagnosis on : /Cardiopulmonary arrest - multifactorial - due to underlying CHF, arrythmia, severe anemia and renal failure / Rectal bleeding; Likely from stool impaction s/p attempted colonoscopy on 10/02/18 that revealed a fecal impaction with brown stool (visualized mucosa normal appearin; no evidence of fresh or old blood) -abd CT on 09/30 negative for acute findings /Stool impaction, s/p golytely, stool softner / Anemia secondary to rectal bleeding ?, Hb dropped upto 5.5 s/p 2 units of blood transfusion, Hb improved to 8.1, then dropped again to ~6.6 /New onset atrial fib - placed on amioderone drip and then transitined to po, no AC as pt presented with severe anemia, consulted cardiology, 2d echo showed Ef 35-40% /Acute kidney injury; secondary to vasomotor nephropathy monitored Creatinine, avoided nephrotoxins, provided gentle hydration /-Hypertension: Moderately controled /-Hypernatremia; improved with continue hypotonic IV fluid /-Dementia; provided supportive care / SIRS : by Criteria, given empiric antibiotics and obtained cultures, supportive care, /-DVTprophylaxis: SCD / DNR CODE STATUS Pertinent studies: CT head CXR 2d echo Abdominal xry CT abdomen/pelvis
--- NOTE | 2018-10-06 13:55 | XRay Report ---
FINAL REPORT EXAM: XR CHEST 1V AP HISTORY: SOB TECHNIQUE: Frontal chest x-ray. PRIORS: None currently available. FINDINGS: Cardiac silhouette is within normal limits. Aortic calcifications. Ill-defined opacity in the lateral right midlung and both lower lobes. Prominent bilateral pulmonary markings. No pneumothorax. Small to moderate bilateral pleural effusions. There are no suspicious osseous lesions. Enteric tube is present within the stomach. IMPRESSION: Suspect pulmonary vascular congestion with edema. Focal pneumonic infiltrate or edema in the lateral right midlung. Small to moderate bilateral pleural effusions.
== END 2018-10-06 17:06 | DRG 871 ==
LOC: ED 11:40 → IMCU 14:43
PROVIDERS: ADMIT Internal Medicine; ATTEND Internal Medicine
PROC: 30233N1 Transfusion of Nonautologous Red Blood Cells into Peripheral Vein, Percutaneous Approach (ICD-10-PCS; principal; 2018-09-30)
PROC: 0DJD8ZZ Inspection of Lower Intestinal Tract, Via Natural or Artificial Opening Endoscopic (ICD-10-PCS; 2018-10-02)
DX: A41.9 Sepsis, unspecified organism (principal); N17.0 Acute kidney failure with tubular necrosis; G93.40 Encephalopathy, unspecified; K62.5 Hemorrhage of anus and rectum; E87.0 Hyperosmolality and hypernatremia; R64 Cachexia; I10 Essential (primary) hypertension; E78.5 Hyperlipidemia, unspecified; D64.9 Anemia, unspecified; F03.90 Unspecified dementia, unspecified severity, without behavioral disturbance, psychotic disturbance, mood disturbance, and anxiety; K56.41 Fecal impaction; I48.91 Unspecified atrial fibrillation; Z66 Do not resuscitate; E87.6 Hypokalemia; Z86.73 Personal history of transient ischemic attack (TIA), and cerebral infarction without residual deficits; Z68.22 Body mass index [BMI] 22.0-22.9, adult; Z79.899 Other long term (current) drug therapy; Z85.038 Personal history of other malignant neoplasm of large intestine; I46.9 Cardiac arrest, cause unspecified
CPT/HCPCS: 36415; 36430; 70450; 71045; 74018; 74176; 80048; 80053; 82140; 82271; 82728; 83010; 83550; 83690; 83735; 84439; 84443; 85007; 85014; 85018; 85025; 85610; 85730; 86850; 86900; 86901; 86920; 87040; 93005; 93010; 93306; 94760; G0378; C9113; J0282; J0692; J1956; J2704; J3475; J3480; J7030; J7040; J7060; P9016